=== PATIENT | female | born 1950 | race Caucasian/White ===

== ENCOUNTER 2020-05-18 10:15 | Outpatient (REF) | payer MEDICARE, OTHER, SELFPAY ==
[2020-05-18 14:07] LABS: Anion Gap 11 (12-20); Blood Urea Nitrogen 18 mg/dL (9-16); Calcium 8.8 mg/dL (8.4-10.2); Carbon Dioxide 27 mmol/L (22-29); Chloride 103 mmol/L (96-108); Estimated Glomerular Filt Rate > 60; Glucose Random 82 mg/dL (60-115); Potassium 4.1 mmol/l (3.3-5.1); Sodium 137 mmol/L (135-145)
[2020-05-18 14:30] LABS: Vitamin D 25-OH Total 33.6 ng/mL (>30)
== END 2020-05-18 10:16 | disposition home or self-care (01) ==
LOC: HO.10HDL 10:15
PROVIDERS: PCP Internal Medicine; Visit Provider Internal Medicine
DX: I10 Essential (primary) hypertension (principal); E55.9 Vitamin D deficiency, unspecified
CPT/HCPCS: 80048; 82306

== ENCOUNTER 2020-10-30 09:56 | Outpatient (REF) | payer MEDICARE, OTHER, SELFPAY ==
--- NOTE | ~2020-10-30 | XR_ITS ---
EXAMINATION: XR KNEE, LEFT CLINICAL INFORMATION: Left knee pain COMPARISON: 10/09/2009 TECHNIQUE: Four views of the left knee. FINDINGS: No acute fracture or dislocation. Small tricompartmental marginal osteophytes. There is moderate narrowing of the lateral patellofemoral compartment with a coming subchondral sclerosis and cystic change. Joint spaces are otherwise relatively preserved. Trace joint effusion. Soft tissues unremarkable. XR/XR knee LT 4V IMPRESSION: No acute findings. There is moderate joint space narrowing involving the lateral patellofemoral compartment. Small tricompartmental marginal osteophytes. Trace joint effusion.
[2020-10-30 10:46] LABS: MANUAL DIFF FLAG NO
[2020-10-30 10:51] LABS: Basophils Absolute Auto 0.1 X10*3/uL (0.0-0.2); Basophils Percent Auto 0.6 % (0-2); Eosinophils Absolute Auto 0.2 X10*3/uL (0.0-0.4); Eosinophils Percent Auto 2.2 % (0-4); Hematocrit 41.1 % (37-47); Hemoglobin 13.4 g/dl (12.0-16.0); Imm Gran Abs Auto 0.06 X10*3/uL (0.00-0.03); Imm Gran Pct Auto 0.6 % (0.0-0.4); Lymphocytes Absolute Auto 4.6 X10*3/uL (1.2-4.9); Lymphocytes Percent Auto 49.2 % (20-40); Mean Corpuscular HGB Conc 32.6 g/dl (31.0-35.0); Mean Corpuscular Hemoglobin 29.4 pg (27.0-33.0); Mean Corpuscular Volume 90.1 fL (80-98); Monocytes Absolute Auto 0.7 X10*3/uL (0.1-1.2); Monocytes Percent Auto 7.3 % (2-11); Neutrophils Absolute Auto 3.7 X10*3/uL (2.0-8.3); Neutrophils Percent Auto 40.1 % (45-73); Platelet Count 251 X10*3/uL (160-400); Red Blood Count 4.56 X10*6/uL (4.20-5.50); White Blood Count 9.3 X10*3/uL (4.8-10.8)
[2020-10-30 11:40] LABS: Alanine Aminotransferase 17 U/L (0-31); Albumin Level 4.2 g/dL (3.5-5.0); Alkaline Phosphatase 53 U/L (39-117); Anion Gap 13 (12-20); Aspartate Amino Transferase 20 U/L (5-31); Bilirubin Total 0.9 mg/dL (0.0-1.0); Blood Urea Nitrogen 21 mg/dL (9-16); Calcium 9.2 mg/dL (8.4-10.2); Carbon Dioxide 25 mmol/L (22-29); Chloride 106 mmol/L (96-108); Cholesterol 182 mg/dL; Estimated Glomerular Filt Rate > 60; Glucose Fasting 88 mg/dL (60-99); HDL Cholesterol 47 mg/dL; LDL Cholesterol Calculated 116 mg/dl; Potassium 4.3 mmol/L (3.3-5.1); Sodium 140 mmol/L (135-145); Total Protein 6.9 g/dL (6.5-8.0); Triglycerides 98 mg/dL
== END 2020-10-30 09:57 | disposition home or self-care (01) ==
LOC: HO.LAB 09:56
PROVIDERS: PCP Internal Medicine; Visit Provider Internal Medicine
DX: M25.562 Pain in left knee (principal)
CPT/HCPCS: 36415; 73564; 80053; 80061; 82306; 85025

== ENCOUNTER 2021-04-02 10:50 | Outpatient (REF) | payer MEDICARE, OTHER, SELFPAY ==
--- NOTE | ~2021-04-02 | US_ITS ---
EXAMINATION: US VENOUS ULTRASOUND WITH DOPPLER LOWER EXTREMITY, RIGHT CLINICAL INFORMATION: Right leg pain COMPARISON: None TECHNIQUE: Ultrasound of the deep veins is performed from the hip to the calf with compression sonography and color and pulse Doppler assessment. Spectral analysis with color-flow imaging is performed. FINDINGS: There is normal venous compression and respiratory variation and augmented flow. The visualized common femoral vein, superficial femoral vein, profunda femoral vein, popliteal vein, and the trifurcation region shows no evidence of deep venous thrombosis. There is a Crump's cyst noted measuring 5.9 x 1.2 x 3.9 cm. In the area of pain at the right ankle there is a small area of superficial fluid measuring 1.2 x 0.7 x 1 cm. If the patient's symptoms persist, followup ultrasound in 5 days 7 days might be of value to exclude proximal propagation from a non-visualized calf vein. US/US venous duplex LE RT IMPRESSION: No DVT demonstrated in the right lower extremity. Crump's cyst. Area of superficial fluid at the right ankle. This is of uncertain clinical significance.
--- NOTE | ~2021-04-02 | XR_ITS ---
EXAMINATION: XR KNEE, RIGHT CLINICAL INFORMATION: Right knee pain. COMPARISON: Left knee done on 10/30/2020. TECHNIQUE: Four views of the right knee. FINDINGS: Moderate diffuse osteopenia. Asymmetric decreased joint space of the lateral compartment with mild osteophyte formations and underlying sclerosis, consistent with ttbv-ii-upzigbam osteoarthrosis is noted at the lateral compartment. No evidence of any joint effusion. No focal osseous lesions. Patellofemoral joint and the medial compartment shows minimal osteoarthrosis. XR/XR knee RT 3V IMPRESSION: 1. Moderate diffuse osteopenia. 2. [id number]-vitgxdyf osteoarthrosis of the lateral compartment of the right knee.
== END 2021-04-02 10:51 | disposition home or self-care (01) ==
LOC: HO.US 10:50
PROVIDERS: PCP Internal Medicine; Visit Provider Internal Medicine
DX: R60.0 Localized edema (principal); M79.604 Pain in right leg
CPT/HCPCS: 73562; 93971

== ENCOUNTER 2021-05-14 10:32 | Outpatient (REF) | payer MEDICARE, OTHER, SELFPAY ==
--- NOTE | ~2021-05-14 | XR_ITS ---
EXAMINATION: XR KNEE, RIGHT CLINICAL INFORMATION: Right knee pain. COMPARISON: X-rays March 2021. TECHNIQUE: Four views of the right knee including upright views. FINDINGS: Medial Compartment: Small marginal osteophytes without joint space narrowing indicative of mild osteoarthritis. Lateral Compartment: Marginal osteophytes with joint space narrowing indicative of yhsn-vo-hlgpirpn osteoarthritis unchanged. Patellofemoral Compartment: Nonuniform joint space narrowing with subchondral cysts along the lateral aspect of the compartment. Marginal osteophytes. Overall mild arthrosis. Trace joint effusion. XR/XR knee RT 4V IMPRESSION: Osteoarthritis of the right knee, unchanged, with degenerative changes most prominent in the lateral compartment being mild to moderate.
== END 2021-05-14 10:33 | disposition home or self-care (01) ==
LOC: HO.XRAY 10:32
PROVIDERS: PCP Internal Medicine; Visit Provider Internal Medicine
DX: M25.561 Pain in right knee (principal)
CPT/HCPCS: 73564

== ENCOUNTER → 2021-05-20 13:52 | Outpatient (BNVA) | payer MEDICARE, OTHER, SELFPAY | PROVIDERS: PCP Internal Medicine; Visit Provider Orthopaedic Surgery | DX: M17.11 Unilateral primary osteoarthritis, right knee (principal) | CPT/HCPCS: 20610; 99202; J1100 ==

== ENCOUNTER 2021-08-06 10:54 | Outpatient (REF) | payer MEDICARE, OTHER, SELFPAY ==
[2021-08-06 13:43] LABS: MANUAL DIFF FLAG NO
[2021-08-06 13:50] LABS: Basophils Absolute Auto 0.1 X10*3/uL (0.0-0.2); Basophils Percent Auto 0.5 % (0-2); Eosinophils Absolute Auto 0.2 X10*3/uL (0.0-0.4); Eosinophils Percent Auto 2.2 % (0-4); Hematocrit 40.7 % (37.0-47.0); Hemoglobin 13.4 g/dl (12.0-16.0); Imm Gran Abs Auto 0.04 X10*3/uL (0.00-0.03); Imm Gran Pct Auto 0.4 % (0.0-0.4); Lymphocytes Absolute Auto 4.4 X10*3/uL (1.2-4.9); Mean Corpuscular HGB Conc 32.9 g/dl (31.0-35.0); Mean Corpuscular Hemoglobin 29.4 pg (27.0-33.0); Mean Corpuscular Volume 89.3 fL (80.0-98.0); Monocytes Absolute Auto 0.7 X10*3/uL (0.1-1.2); Monocytes Percent Auto 7.2 % (2-11); Neutrophils Absolute Auto 3.8 x10*3/uL (2.0-8.3); Neutrophils Percent Auto 41.7 % (45-73); Platelet Count 248 X10*3/uL (160-400); Red Blood Count 4.56 X10*6/uL (4.20-5.50); Red Cell Distribution Width 12.7 % (11.0-16.0); White Blood Count 9.2 X10*3/uL (4.8-10.8)
[2021-08-06 14:00] LABS: Alanine Aminotransferase 20 U/L (0-31); Albumin Level 4.1 g/dL (3.5-5.0); Alkaline Phosphatase 52 U/L (39-117); Anion Gap 12 (12-20); Aspartate Amino Transferase 20 U/L (5-31); Bilirubin Total 0.9 mg/dL (0.0-1.0); Blood Urea Nitrogen 16 mg/dL (9-16); Calcium 9.3 mg/dL (8.4-10.2); Carbon Dioxide 29 mmol/L (22-29); Chloride 103 mmol/L (96-108); Estimated Glomerular Filt Rate > 60; Glucose Fasting 84 mg/dL (60-99); Lipase 8 U/L (8-78); Potassium 4.1 mmol/L (3.3-5.1); Sodium 140 mmol/L (135-145)
== END 2021-08-06 10:55 | disposition home or self-care (01) ==
LOC: HO.10HDL 10:54
PROVIDERS: Visit Provider Internal Medicine
DX: I10 Essential (primary) hypertension (principal); K21.9 Gastro-esophageal reflux disease without esophagitis
CPT/HCPCS: 36415; 80053; 83690; 85025; 86140

== ENCOUNTER → 2021-08-19 09:30 | Outpatient (BNVA) | payer MEDICARE, OTHER, SELFPAY | PROVIDERS: PCP Internal Medicine; Visit Provider Orthopaedic Surgery | DX: M17.11 Unilateral primary osteoarthritis, right knee (principal) | CPT/HCPCS: 20610; 99212; J1100 ==

== ENCOUNTER 2021-09-30 10:00 | Outpatient (RCR) | payer MEDICARE, OTHER, SELFPAY | END 2021-12-16 09:25 | disposition home or self-care (01) | LOC: HO.PTWFD 10:00 | PROVIDERS: Visit Provider Orthopaedic Surgery | DX: M17.11 Unilateral primary osteoarthritis, right knee (principal) | CPT/HCPCS: 97110; 97140; 97161; 97535 ==

== ENCOUNTER 2022-03-18 10:16 | Outpatient (REF) | payer MEDICARE, OTHER, SELFPAY ==
[2022-03-18 13:55] LABS: Alanine Aminotransferase 30 U/L (0-31); Albumin Level 4.3 g/dL (3.5-5.0); Alkaline Phosphatase 58 U/L (39-117); Anion Gap 14 (12-20); Aspartate Amino Transferase 26 U/L (5-31); Bilirubin Total 0.8 mg/dL (0.0-1.0); Blood Urea Nitrogen 20 mg/dL (9-16); Carbon Dioxide 24 mmol/L (22-29); Chloride 105 mmol/L (96-108); Cholesterol 155 mg/dL; Estimated Glomerular Filt Rate > 60; Glucose Fasting 86 mg/dL (60-99); HDL Cholesterol 40 mg/dL; LDL Cholesterol Calculated 99 mg/dl; Potassium 4.1 mmol/L (3.3-5.1); Sodium 139 mmol/L (135-145); Total Protein 7.1 g/dL (6.5-8.0); Triglycerides 84 mg/dL
== END 2022-03-18 10:17 | disposition home or self-care (01) ==
LOC: HO.10HDL 10:16
PROVIDERS: Visit Provider Internal Medicine
DX: I10 Essential (primary) hypertension (principal); E78.00 Pure hypercholesterolemia, unspecified; K21.9 Gastro-esophageal reflux disease without esophagitis
CPT/HCPCS: 36415; 80053; 80061

== ENCOUNTER 2022-06-28 08:59 | Day surgery (SDC) | payer MEDICARE, OTHER, SELFPAY ==
[2022-06-28 09:04] VITALS: BMI 32.9
[2022-06-28] MEDS: Lactated Ringers 1,000 ML 50 ML IVCONT (09:33)
[2022-06-28 09:47] VITALS: BP 157/84; PULSE 68; RESP 18; TEMP 36.7; O2SAT 96
--- NOTE | 2022-06-28 09:50 | P.CONAN_ITS ---
[facility] Active Problems Active Problems: All Active Problems (Updated 06/27/22 @ 09:28 by La Sewell) Arthritis of right knee (Acute) Past Medical History Medical History Bakers cyst Gastritis H. pylori infection HTN (hypertension) Peptic ulcer disease Polyp of hepatic flexure of colon Functional capacity: independent ambulation Patient : No Surgical History Surgical History H/O colonoscopy H/O endoscopy History of Hx of cholecystectomy Social History Social History Patient Tobacco Use Status: Never used Tobacco Are you DNR?: No Advance Directives: No Advance Directives Information Provided: Yes Nutrition Risks: No Nutritional Risk Meds Allergies Allergy/AdvReac Type Severity Reaction Status Date / Time No Known Allergies Allergy Mild NONE Unverified 02/13/20 16:37 Active Medications: Current Medications Lactated Ringer's (Lr) 1,000 mls @ 50 mls/hr IVCONT .Q20H MARIZOL Last Admin: 06/28/22 09:33 Dose: 50 mls/hr Home Medications Medication Instructions Recorded Confirmed Last Taken Type Protonix 06/27/22 06/27/22 Unknown History amlodipine 10 mg tablet 1 tab PO DAILY 06/27/22 06/27/22 Unknown History nadolol 40 mg tablet 1 tab PO DAILY 06/27/22 06/27/22 Unknown History pantoprazole 40 mg tablet,delayed 1 tab PO DAILY 06/27/22 06/27/22 Unknown History release Exam Exam Date and Time: June 28, 2022 0950 Height,Weight and Vital Signs: Height 5 ft 2 in Weight 81.647 kg Last Vital Signs Temp 98.1 F 06/28/22 09:47 Pulse 68 06/28/22 09:47 Resp 18 06/28/22 09:47 BP 157/84 H 06/28/22 09:47 Pulse Ox 96 06/28/22 09:47 O2 Del Method 06/28/22 09:47 Airway Mallampati Class: II TM Dist: >3cm Neck ROM: Full Heart: RRR Lungs: CTA Assessment and Plan Final Anesthetic Review ASA Class: II Final Preanesthetic Review: Meds/Allgs Chart Reviewed, Consent Obtained/Reviewed and Anes Risks/Benef Reviewed Patient Risk: Low Procedure Risk: Low Anesthetic Plan Anesthetic Plan: MAC: Disposition: Standard PACU
--- NOTE | 2022-06-28 10:10 | MHC.SHP ---
Pre-Procedural Eval Section A Date of Service: 06/28/22 The patient is an INPATIENT: No Changes since office visit: No Cold of Flu in the past 2 weeks, No New Medical Problems, No Changes in Medication and No Patient answered all questions The History & Physical has been completed within 30 days and I have reviewed it.: Yes Section B Chief Complaint: reflux disease,screening Allergies: Allergies Allergy/AdvReac Type Severity Reaction Status Date / Time No Known Allergies Allergy Mild NONE Unverified 02/13/20 16:37 Plan I have reviewed the history and physical and performed a pertinent physical examination on my patient. No changes have occurred unless specified. Time Spent With Patient Time: Total time managing care of this patient today ____ minutes.
--- NOTE | 2022-06-28 10:55 | PM.OP ---
Brief Operative Note Date of Service: 06/28/22 Pre-op diagnosis: gerd screening Post-op diagnosis: same Procedure: egd colonoscopy Surgeon: Tin Corbin Anesthesia: MAC Was an Self Propelled Dredge Operator used for this Procedure?: No Estimated blood loss (mL): 2 Pathology: other Condition: stable Disposition: PACU
[2022-06-28 10:58] VITALS: BP 98/52; PULSE 70; RESP 16; TEMP 36.7; O2SAT 96
[2022-06-28 11:13] VITALS: BP 104/59; PULSE 69; RESP 16; TEMP 36.6; O2SAT 97
--- NOTE | 2022-06-28 11:16 | HO.POSTANES ---
Post Anesthesia Evaluation Post Anesthesia Evaluation Vital Signs: Vital Signs Temp Pulse Resp BP Pulse Ox O2 Del Method 06/28/22 10:58 98.1 F 70 16 98/52 L 96 Room Air 06/28/22 09:47 98.1 F 68 18 157/84 H 96 Room Air Anesthesia: Monitored Mental Status: Awake Pain Control: Satisfactory Nausea/Vomiting: None Hydration: Adequate Anesthesia-Related Issues: No Anes. Related Issues
--- NOTE | 2022-06-28 21:51 | OP_ITS ---
SURGEON: Tin Corbin MD INDICATIONS: Gastroesophageal reflux disease and colon cancer screening. PREOPERATIVE DIAGNOSIS: POSTOPERATIVE DIAGNOSIS: PROCEDURE PERFORMED: Upper endoscopy with biopsy, colonoscopy to the terminal ileum. ESTIMATED BLOOD LOSS: COMPLICATIONS: ANESTHESIA: ASSISTANTS: SPECIMENS: MEDICATIONS: Monitored anesthesia care. DESCRIPTION OF PROCEDURE: Date: 06/28/22. A history and physical was performed. The risks and benefits of the procedure were explained to the patient. Informed consent was obtained. The patient was placed in the left lateral decubitus position. The Olympus video gastroscope was introduced into the esophagus, stomach, and duodenum. Examination was performed and the scope was removed. She was repositioned for colonoscopy. A digital rectal exam was performed and was found to be normal. The Olympus pediatric video colonoscope introduced into the rectum and advanced to the cecum without difficulty. The cecum was identified by translumination, palpation, and identification of the ileocecal valve. Examination was performed. The scope was removed. She tolerated the procedure well and was returned to the recovery area in stable condition. FINDINGS: UPPER ENDOSCOPY: Esophagus: The esophagus was normal. Biopsies were obtained from the EG junction. There was no esophagitis. Stomach: The stomach was normal. There was no evidence of masses or ulcers. There was a 10 mm nodular area on the lesser curvature and at the level of the angularis, biopsies were obtained from the nodule and from the antrum. Duodenum: The bulb and second portion were normal. COLONOSCOPY: The terminal ileum was examined and appeared normal. The visualized colonic mucosa was normal. There was a large amount of liquid and formed stool present which limited sensitivity examination for detection of small polyps. This was washed and suctioned as best possible. No polyps were identified. There was moderate sigmoid diverticulosis with scattered diverticula and the remainder of the colon. Retroflexed examination showed moderate sized internal hemorrhoids. IMPRESSION: 1. Gastroesophageal reflux disease. 2. Normal colonoscopy. RECOMMENDATIONS: 1. Follow up the biopsy results. 2. Repeat colonoscopy as recommended in 10 years for average risk individuals. MD ADRIANA Roque/MAREK / [id number] MTDD
== END 2022-06-28 12:12 | disposition home or self-care (01) ==
PROVIDERS: PCP Internal Medicine; Visit Provider Internal Medicine Gastroenterology
PROC: (CPT 43239; principal; 2022-06-28 10:10)
DX: Z12.11 Encounter for screening for malignant neoplasm of colon (principal); Z86.010 Personal history of colon polyps; K57.30 Diverticulosis of large intestine without perforation or abscess without bleeding; K64.8 Other hemorrhoids; K58.1 Irritable bowel syndrome with constipation; K21.9 Gastro-esophageal reflux disease without esophagitis; K29.50 Unspecified chronic gastritis without bleeding; K27.9 Peptic ulcer, site unspecified, unspecified as acute or chronic, without hemorrhage or perforation; I10 Essential (primary) hypertension; Z86.19 Personal history of other infectious and parasitic diseases; Z79.899 Other long term (current) drug therapy; Z90.49 Acquired absence of other specified parts of digestive tract
CPT/HCPCS: 43239; G0105; 88305; 88342

== ENCOUNTER 2022-07-04 09:50 | Outpatient (REF) | payer MEDICARE, OTHER, SELFPAY ==
[2022-07-04 10:04] LABS: MANUAL DIFF FLAG NO
[2022-07-04 10:18] LABS: Basophils Absolute Auto 0.1 X10*3/uL (0.0-0.2); Basophils Percent Auto 0.8 % (0-2); Eosinophils Absolute Auto 0.2 X10*3/uL (0.0-0.4); Eosinophils Percent Auto 2.5 % (0-4); Hematocrit 42.1 % (37.0-47.0); Imm Gran Abs Auto 0.02 X10*3/uL (0.00-0.03); Imm Gran Pct Auto 0.2 % (0.0-0.4); Lymphocytes Percent Auto 45.8 % (20-40); Mean Corpuscular HGB Conc 33.3 g/dl (31.0-35.0); Mean Corpuscular Hemoglobin 29.2 pg (27.0-33.0); Mean Corpuscular Volume 87.7 fL (80.0-98.0); Mean Platelet Volume 10.3 fL (9.4-12.3); Monocytes Absolute Auto 0.6 X10*3/uL (0.1-1.2); Monocytes Percent Auto 6.7 % (2-11); Neutrophils Absolute Auto 3.9 x10*3/uL (2.0-8.3); Platelet Count 257 X10*3/uL (160-400); Red Cell Distribution Width 12.9 % (11.0-16.0); White Blood Count 8.8 X10*3/uL (4.8-10.8)
[2022-07-04 11:17] LABS: Alanine Aminotransferase 20 U/L (0-31); Albumin Level 4.2 g/dL (3.5-5.0); Alkaline Phosphatase 56 U/L (39-117); Anion Gap 9 (12-20); Aspartate Amino Transferase 19 U/L (5-31); Bilirubin Total 0.8 mg/dL (0.0-1.0); Blood Urea Nitrogen 17 mg/dL (9-16); Calcium 9.2 mg/dL (8.4-10.2); Carbon Dioxide 26 mmol/L (22-29); Chloride 107 mmol/L (96-108); Cholesterol 180 mg/dL; Estimated Glomerular Filt Rate > 60; Glucose Fasting 88 mg/dL (60-99); HDL Cholesterol 42 mg/dL; LDL Cholesterol Calculated 120 mg/dl; Potassium 4.4 mmol/L (3.3-5.1); Sodium 138 mmol/L (135-145); Total Protein 6.9 g/dL (6.5-8.0); Triglycerides 92 mg/dL
== END 2022-07-04 09:51 | disposition home or self-care (01) ==
LOC: HO.LAB 09:50
PROVIDERS: PCP Internal Medicine; Visit Provider Internal Medicine
DX: Z00.00 Encounter for general adult medical examination without abnormal findings (principal)
CPT/HCPCS: 36415; 80053; 80061; 85025

== ENCOUNTER 2022-12-12 10:09 | Outpatient (REF) | payer MEDICARE, OTHER, SELFPAY ==
--- NOTE | ~2022-12-12 | XR_ITS ---
EXAMINATION: XR KNEE, LEFT CLINICAL INFORMATION: Pain COMPARISON: None available. TECHNIQUE: Four views of the left knee. FINDINGS: No fracture or dislocation. Moderate cartilage space narrowing in the lateral compartment with bony spurring. Mild degenerative changes in the medial compartment and patellofemoral compartments. No large effusion. Soft tissues unremarkable. XR/XR knee LT 4V IMPRESSION: Moderate degenerative change in the lateral compartment.
--- NOTE | ~2022-12-12 | XR_ITS ---
EXAMINATION: XR ANKLE, LEFT CLINICAL INFORMATION: Pain COMPARISON: None available. TECHNIQUE: AP, lateral, and mortise views of the left ankle. FINDINGS: No fracture. Alignment is anatomic. No erosions. Joint spaces are maintained. Small plantar calcaneal spur. Soft tissues are normal. XR/XR ankle LT min 3V IMPRESSION: 1. No fracture or dislocation. 2. Small plantar calcaneal spur.
[2022-12-12 10:28] LABS: MANUAL DIFF FLAG NO
[2022-12-12 11:30] LABS: Basophils Absolute Auto 0.1 X10*3/uL (0.0-0.2); Basophils Percent Auto 0.5 % (0-2); Eosinophils Absolute Auto 0.3 X10*3/uL (0.0-0.4); Eosinophils Percent Auto 2.5 % (0-4); Hematocrit 41.4 % (37.0-47.0); Hemoglobin 13.7 g/dl (12.0-16.0); Imm Gran Abs Auto 0.04 X10*3/uL (0.00-0.03); Imm Gran Pct Auto 0.4 % (0.0-0.4); Lymphocytes Absolute Auto 4.4 X10*3/uL (1.2-4.9); Lymphocytes Percent Auto 44.6 % (20-40); Mean Corpuscular HGB Conc 33.1 g/dl (31.0-35.0); Mean Corpuscular Hemoglobin 29.4 pg (27.0-33.0); Mean Corpuscular Volume 88.8 fL (80.0-98.0); Mean Platelet Volume 10.4 fL (9.4-12.3); Monocytes Absolute Auto 0.7 X10*3/uL (0.1-1.2); Monocytes Percent Auto 6.9 % (2-11); Neutrophils Absolute Auto 4.5 x10*3/uL (2.0-8.3); Neutrophils Percent Auto 45.1 % (45-73); Platelet Count 239 X10*3/uL (160-400); Red Blood Count 4.66 X10*6/uL (4.20-5.50); Red Cell Distribution Width 13.2 % (11.0-16.0)
[2022-12-12 12:37] LABS: Anion Gap 11 (12-20); Blood Urea Nitrogen 19 mg/dL (9-16); Calcium 9.5 mg/dL (8.4-10.2); Carbon Dioxide 25 mmol/L (22-29); Chloride 105 mmol/L (96-108); Estimated Glomerular Filt Rate > 60; Glucose Random 86 mg/dL (60-115); Potassium 3.9 mmol/L (3.3-5.1); Sodium 137 mmol/L (135-145); Uric Acid 4.2 mg/dL (2.4-5.7)
== END 2022-12-12 10:10 | disposition home or self-care (01) ==
LOC: HO.XRAY 10:09
PROVIDERS: PCP Internal Medicine; Visit Provider Internal Medicine
DX: I10 Essential (primary) hypertension (principal); K21.9 Gastro-esophageal reflux disease without esophagitis; M25.562 Pain in left knee; M25.572 Pain in left ankle and joints of left foot
CPT/HCPCS: 36415; 73564; 73610; 80048; 84550; 85025; 86140

== ENCOUNTER 2023-02-17 08:17 | Day surgery (SDC) | payer MEDICARE, OTHER, SELFPAY ==
--- NOTE | 2023-02-16 10:37 | P.CONAN_ITS ---
Documented by User: Mara Monterroso NP 02/16/23 10:38 HPI - Anesthesia Eval Consult details Narrative: 73yo F for Upper Endoscopy [facility] Active Problems Active Problems: All Active Problems (Updated 06/27/22 @ 09:28 by La Sewell) Arthritis of right knee (Acute) Past Medical History Medical History Bakers cyst Gastritis H. pylori infection HTN (hypertension) Peptic ulcer disease Polyp of hepatic flexure of colon Surgical History Surgical History H/O colonoscopy H/O endoscopy History of Hx of cholecystectomy Social History Social History Patient Tobacco Use Status: Never used Tobacco Are you DNR?: No Advance Directives: No Advance Directives Information Provided: Yes Recently lost weight without trying: No Nutrition Risks: No Nutritional Risk Meds Allergies Allergy/AdvReac Type Severity Reaction Status Date / Time No Known Allergies Allergy Mild NONE Unverified 02/13/20 16:37 Home Medications Medication Instructions Recorded Confirmed Last Taken Type amlodipine 10 mg tablet 1 tab PO DAILY 06/27/22 06/27/22 02/17/23 History nadolol 40 mg tablet 1 tab PO DAILY 06/27/22 06/27/22 02/17/23 History pantoprazole 40 mg tablet,delayed 1 tab PO DAILY 06/27/22 06/27/22 02/16/23 History release Exam Exam Date and Time: February 16, 2023 1037 Assessment and Plan Assessment Anesthesia Assessment: Chart Reviewed Documented by User: Kayce London MD 02/17/23 09:05 [facility] Past Medical History Medical History Bakers cyst Gastritis H. pylori infection HTN (hypertension) Peptic ulcer disease Polyp of hepatic flexure of colon Family History Family history of problems with anesthesia: No Surgical History Surgical History H/O colonoscopy H/O endoscopy History of Hx of cholecystectomy History of Problems with Anesthesia: No Social History Social History Patient Tobacco Use Status: Never used Tobacco Are you DNR?: No Advance Directives: No Advance Directives Information Provided: Yes Recently lost weight without trying: No Nutrition Risks: No Nutritional Risk Meds Allergies Allergy/AdvReac Type Severity Reaction Status Date / Time No Known Allergies Allergy Mild NONE Unverified 02/13/20 16:37 Home Medications Medication Instructions Recorded Confirmed Last Taken Type amlodipine 10 mg tablet 1 tab PO DAILY 06/27/22 06/27/22 02/17/23 History nadolol 40 mg tablet 1 tab PO DAILY 06/27/22 06/27/22 02/17/23 History pantoprazole 40 mg tablet,delayed 1 tab PO DAILY 06/27/22 06/27/22 02/16/23 History release Exam Airway Mallampati Class: III TM Dist: >3cm Neck ROM: Full Assessment and Plan Assessment Anesthesia Assessment: Anesthesia Plan Discussed Final Anesthetic Review Family History of Problems with Anesthesia: No History of Problems with Anesthesia: No NPO: Yes ASA Class: II Final Preanesthetic Review: No Changes in Pt Med Stat, Meds/Allgs Chart Reviewed, Consent Obtained/Reviewed and Anes Risks/Benef Reviewed Patient Risk: Intermediate Procedure Risk: Low Anesthetic Plan Anesthetic Plan: MAC: Disposition: Standard PACU
[2023-02-17 08:06] VITALS: BMI 34.7
[2023-02-17 08:27] VITALS: BP 156/83; PULSE 58; RESP 20; TEMP 36.6; O2SAT 98
[2023-02-17] MEDS: Lactated Ringers 1,000 ML 100 ML IVCONT (08:52)
--- NOTE | 2023-02-17 09:19 | P.HPSUR_ITS ---
Pre-Procedural Eval Section A Date of Service: 02/17/23 Section B Chief Complaint: Gastric intestinal metaplasia, unspecified Details of Present Illness: see H&P no changes Relevant Family History (Specify if Yes): No Relevant Social History: None Present Medications: see Short Stay Collaborative assessment Medical History: No relevant PMH History of Previous Operations: No relevant previous surgery Allergies: Allergies Allergy/AdvReac Type Severity Reaction Status Date / Time No Known Allergies Allergy Mild NONE Unverified 02/13/20 16:37 Review of Systems Sugical H&P ROS: Negative: Constitution, Cardiovascular, Respiratory, Neur ological, Psychiatric, Hem-Onc, Allergic/Immunologic, Gastrointestinal, Genitourinary, Musculoskeletal, Integumentary, Endocrine and Eyes/Ears/Nose/Throat Exam Surgical H&P Exam: Normal: HEENT, Normal: Heart, Normal: Lungs, Normal: Extremities, Normal: Abdomen, Normal: Skin and Normal: Neurological Plan Diagnosis/Plan: Unchanged I have reviewed the history and physical and performed a pertinent physical examination on my patient. No changes have occurred unless specified. Time Spent With Patient Time: Total time managing care of this patient today ____ minutes.
[2023-02-17 09:45] VITALS: BP 107/50; PULSE 66; RESP 16; TEMP 36.3; O2SAT 97
--- NOTE | 2023-02-17 09:57 | PM.OP ---
Brief Operative Note Date of Service: 02/17/23 Pre-op diagnosis: gastric intestinal metaplasia Post-op diagnosis: same Procedure: EGD Surgeon: Tin Corbin Anesthesia: MAC Was an Student Development Specialist used for this Procedure?: No Estimated blood loss (mL): 5 Pathology: other Condition: stable Disposition: PACU
[2023-02-17 10:00] VITALS: BP 102/78; PULSE 71; RESP 16; O2SAT 96
[2023-02-17 10:15] VITALS: BP 151/89; PULSE 64; RESP 16; TEMP 36.8; O2SAT 95
--- NOTE | 2023-02-17 11:08 | OP_ITS ---
DATE OF SERVICE: 02/17/2023 SURGEON: Tin Corbin MD INDICATIONS: Gastric intestinal metaplasia. PREOPERATIVE DIAGNOSIS: POSTOPERATIVE DIAGNOSIS: PROCEDURE PERFORMED: ESTIMATED BLOOD LOSS: COMPLICATIONS: ANESTHESIA: Monitored anesthesia care. ASSISTANTS: SPECIMENS: PROCEDURE: Upper endoscopy. DESCRIPTION OF PROCEDURE: A history and physical were performed. The risks and benefits of the procedure were explained to the patient. Informed consent was obtained. The patient was placed in the left lateral decubitus position. The Olympus video gastroscope was introduced into the esophagus, stomach, and duodenum. Examination was performed. The scope was removed. She tolerated the procedure well and was taken to recovery in stable condition. FINDINGS: Esophagus: The esophagus showed an irregular EG junction. There was no esophagitis. Stomach: Showed no evidence of masses, ulcers, or polyps. Biopsies were obtained from throughout the stomach because of the patient's prior history of gastrointestinal metaplasia. Duodenum, the bulb and 2nd portion were normal. IMPRESSION: Gastric intestinal metaplasia. RECOMMENDATION: Follow up the biopsy results. MD ADRIANA Roque/MODL / [id number]
== END 2023-02-17 10:48 | disposition home or self-care (01) ==
PROVIDERS: PCP Internal Medicine; Visit Provider Internal Medicine Gastroenterology
PROC: 0DJ08ZZ Inspection of Upper Intestinal Tract, Via Natural or Artificial Opening Endoscopic (ICD-10-PCS; CPT 43235; principal; 2023-02-17 09:40)
DX: K31.A0 Gastric intestinal metaplasia, unspecified (principal); K21.9 Gastro-esophageal reflux disease without esophagitis; K58.1 Irritable bowel syndrome with constipation; K27.9 Peptic ulcer, site unspecified, unspecified as acute or chronic, without hemorrhage or perforation; I10 Essential (primary) hypertension; Z79.899 Other long term (current) drug therapy; Z90.49 Acquired absence of other specified parts of digestive tract
CPT/HCPCS: 43239; 88305; 88342

== ENCOUNTER 2023-03-20 10:22 | Outpatient (REF) | payer MEDICARE, OTHER, SELFPAY ==
[2023-03-20 11:41] LABS: Anion Gap 13 (12-20); Blood Urea Nitrogen 15 mg/dL (9-16); Carbon Dioxide 25 mmol/L (22-29); Chloride 105 mmol/L (96-108); Estimated Glomerular Filt Rate > 60; Glucose Random 85 mg/dL (60-115); Potassium 3.8 mmol/L (3.3-5.1); Sodium 139 mmol/L (135-145)
[2023-03-20 12:02] LABS: Thyroid Stimulating Hormone 2.28 uIU/mL (0.32-4.0)
[2023-03-20 12:05] LABS: Vitamin B12 497 pg/mL (200-900)
== END 2023-03-20 10:23 | disposition home or self-care (01) ==
LOC: HO.10HDL 10:22
PROVIDERS: Visit Provider Internal Medicine
DX: I10 Essential (primary) hypertension (principal); K21.9 Gastro-esophageal reflux disease without esophagitis; R53.83 Other fatigue
CPT/HCPCS: 36415; 80048; 82607; 84443

== ENCOUNTER 2023-06-27 09:00 | Outpatient (RCR) | payer MEDICARE, OTHER, SELFPAY | END 2023-07-24 11:10 | disposition home or self-care (01) | LOC: HO.PTWFD 09:00 | PROVIDERS: PCP Internal Medicine; Visit Provider Physician Assistant | DX: M72.2 Plantar fascial fibromatosis (principal); S89.90XD Unspecified injury of unspecified lower leg, subsequent encounter | CPT/HCPCS: 97110; 97140; 97161 ==

== ENCOUNTER 2023-08-08 08:49 | Outpatient (AMB) | payer MEDICARE, OTHER, SELFPAY ==
--- NOTE | 2023-08-08 08:51 | MHC.OFFVIS ---
Intake Vital Signs 08/08/23 09:00 Height 5 ft 2 in Weight 188 lb BMI 34.4 BP 188/79 H Blood Pressure Location Lt brachial Position Sitting Pulse 67 Intake Visit Reasons: Thrombosed Hemorrhoid Intake Note: Patient is seen in office for evaluation and treatment of a thrombosed hemorrhoid. Pt c/o: feel lump on the left side of the anus and a rash around buttock, onset 2 wks, admits to constipation, straining, denies blood in stool, takes 6 prums every day and has taken Miralax and Senna with relief, has been having normal bm since taking the meds Manager Nuclear Required: No Work Over Rig Operator: Work Over Rig Operator Present Accompanied by: Self / Same As Patient Allergies No Known Allergies Allergy (Mild, Unverified 08/08/23 08:59) NONE HPI HPI Comments History of Present Illness Details 73-year-old female patient presenting for evaluation of thrombosed hemorrhoid. She reports the symptoms began approximately 2 weeks ago. She reports traveling to [place] to visit her son. She has chronic constipation and requires senna and MiraLax to have a bowel movement. She normally uses a nbhj-glp-ljukzql cream which does not seem to be helping. She noted swelling in the outside skin but also notes skin burning and irritation. She thought she might have a thrombosed hemorrhoid but has history of fissures as well. She does report needing to strain to have a bowel movement but denies any bleeding per rectum. FOR[facility]LY [facility], [facility]1983 Medical History Polyp of hepatic flexure of colon Bakers cyst HTN (hypertension) Peptic ulcer disease H. pylori infection Gastritis Surgical History H/O colonoscopy H/O endoscopy Hx of cholecystectomy History of Social History Patient Tobacco Use Status: Never used Tobacco Review of Systems Const All systems reviewed & are unremarkable except as noted in HPI and below Denies chills, Denies fever(s), Denies headache(s), Denies poor appetite and Denies weakness ENT Denies headache(s) Card Denies chest pain, Denies irregular heart rhythm, Denies palpitations and Denies dyspnea Resp Denies cough, Denies excessive phlegm production and Denies dyspnea GI Denies abdominal pain, Denies bloating, Denies hematochezia, Reports change in bowel habits, Reports constipation, Denies heartburn, Denies diarrhea, Denies nausea and Denies vomiting Denies urinary frequency Musc Denies back pain, Denies muscle weakness and Denies numbness Skin/Breast Denies changing lesions and Denies unusual bruising Neuro Denies headache(s), Denies numbness, Denies paresthesias and Denies weakness Psych Denies anxiety and Denies depression Endo Denies palpitations Jarrod/Lymph Denies lymphadenopathy Physical Exam Const General: cooperative and no acute distress Nutritional Appearance: well nourished Orientation/consciousness: patient oriented x3 Limitations: no limitations HEENT Head: Yes normocephalic and Yes atraumatic Ears: hearing grossly normal bilaterally Resp Effort & Inspection: normal respiratory effort, no audible wheezes, no cough and no respiratory distress Cardio Jugular venous distension: no JVD GI Other: Anal examination reveals a wide area of pruritus ani with moisture in the surrounding skin. No thrombosed hemorrhoids identified. There is a sentinel pile which may be chronic from a previous history of anal fissures. Rectal examination is limited due to the pruritus ani. Digital examination reveals normal sphincter tone with no tenderness in the anal canal. Inspection: Yes normal to inspection Skin Other: Warm, dry, no rash Neuro General: patient oriented x3 Extrem General: Yes no clubbing, cyanosis or edema Assessment & Plan Assessment & Plan (1) Pruritus ani: Code(s): L29.0 - Pruritus ani Plan 73-year-old female patient presenting with complaints of rectal pain and skin irritation. On examination the patient has a wide area of pruritus ani which may benefit from topical zinc oxide. She should also continue warm soaks dry off the skin very well. I have asked her to return in 2 weeks for follow-up examination. Medications: New menthol-zinc oxide 0.44-20.6 % (Calmoseptine) 1 appl topical QID PRN 113 grams 0RF skin irritation L29.0 - Pruritus ani Coding Level of Care Code New Pt Level 4 (05577) Diagnoses Pruritus ani L29.0
[2023-08-08 09:00] VITALS: BP 188/79; PULSE 67; BMI 34.4
== END 2023-08-08 09:13 | disposition home or self-care (01) ==
PROVIDERS: PCP Internal Medicine; Referring Provider Internal Medicine; Visit Provider Surgery
DX: L29.0 Pruritus ani (principal)
CPT/HCPCS: 99204

== ENCOUNTER → 2023-08-08 08:49 | Outpatient (BNVA) | payer MEDICARE, OTHER, SELFPAY | PROVIDERS: PCP Internal Medicine; Referring Provider Internal Medicine; Visit Provider Surgery | DX: L29.0 Pruritus ani (principal) | CPT/HCPCS: 99202 ==

== ENCOUNTER 2023-08-22 09:02 | Outpatient (AMB) | payer MEDICARE, OTHER, SELFPAY ==
--- NOTE | 2023-08-22 09:07 | MHC.OFFVIS ---
Intake Vital Signs 08/22/23 09:14 Height 5 ft 2 in Weight 190 lb 4 oz BMI 34.8 BP 153/70 H Blood Pressure Location Lt brachial Position Sitting Pulse 66 Intake Visit Reasons: 2 wk follow up Thrombosed Hemorrhoid Intake Note: Patient is seen in office for 2 wks follow up visit, following thrombosed hemorrhoids. Pt c/o: admits to improving, has been applying cream with relief, no longer has a rash in the back, however has an area in the left groin that is itchy and has a rash Veterinary Medicine Scientist Required: No Accompanied by: Self / Same As Patient Allergies No Known Allergies Allergy (Mild, Unverified 08/22/23 09:15) NONE Medication List - Last Reconciled 08/22/23 by Paddy Gutierres MD amlodipine 1 tab PO DAILY menthol-zinc oxide 0.44-20.6 % (Calmoseptine) 1 appl topical QID PRN nadolol 1 tab PO DAILY nystatin 1 appl topical BID pantoprazole 1 tab PO DAILY HPI HPI Comments History of Present Illness Details Patient returns for follow-up examination recently diagnosed with pruritus ani and started on topical Calmoseptine. She reports a dramatic improvement in her symptoms and denies any further pain. She does report some itchiness in the groin anteriorly with a small rash. She denies any bleeding per rectum. PFSH Medical History Polyp of hepatic flexure of colon Bakers cyst HTN (hypertension) Peptic ulcer disease H. pylori infection Gastritis Surgical History H/O colonoscopy H/O endoscopy Hx of cholecystectomy History of Social History Patient Tobacco Use Status: Never used Tobacco Physical Exam Vital Signs: Last Vital Signs Pulse 66 08/22/23 09:14 BP 153/70 H 08/22/23 09:14 BMI result Body Mass Index 34.8 GI Other: Rectal examination much improved with no further pruritus a knife. Groin examination does reveal bilateral fungal skin infection. Skin Other: Warm, dry Assessment & Plan Assessment & Plan (1) Fungal skin infection: Code(s): B36.9 - Superficial mycosis, unspecified Plan: Patient has a bilateral groin area of fungal skin infection. I recommended nystatin cream. She should follow up as needed. (2) Pruritus ani: Code(s): L29.0 - Pruritus ani Plan: Much improved today with no further further pruritus ani. She should use the Calmoseptine as needed for recurrence. Medications: New nystatin 1 appl topical BID 15 grams 0RF B36.9 - Superficial mycosis, unspecified Coding Level of Care Code Est Pt Level 3 (91430) Diagnoses Fungal skin infection B36.9 Pruritus ani L29.0
[2023-08-22 09:14] VITALS: BP 153/70; PULSE 66; BMI 34.8
== END 2023-08-22 09:27 | disposition home or self-care (01) ==
PROVIDERS: PCP Internal Medicine; Visit Provider Surgery
DX: B36.9 Superficial mycosis, unspecified (principal); L29.0 Pruritus ani
CPT/HCPCS: 99213

== ENCOUNTER → 2023-08-22 09:02 | Outpatient (BNVA) | payer MEDICARE, OTHER, SELFPAY | PROVIDERS: PCP Internal Medicine; Visit Provider Surgery | DX: L29.0 Pruritus ani (principal); B36.9 Superficial mycosis, unspecified | CPT/HCPCS: 99212 ==

== ENCOUNTER 2024-01-31 09:43 | Outpatient (REF) | payer MEDICARE, OTHER, SELFPAY ==
[2024-01-31 11:12] LABS: MANUAL DIFF FLAG NO
[2024-01-31 11:19] LABS: Basophils Absolute Auto 0.1 X10*3/uL (0.0-0.2); Basophils Percent Auto 0.7 % (0-2); Eosinophils Absolute Auto 0.2 X10*3/uL (0.0-0.4); Eosinophils Percent Auto 2.7 % (0-4); Hematocrit 40.7 % (37.0-47.0); Hemoglobin 13.5 g/dl (12.0-16.0); Imm Gran Abs Auto 0.04 X10*3/uL (0.00-0.03); Imm Gran Pct Auto 0.5 % (0.0-0.4); Lymphocytes Absolute Auto 3.8 X10*3/uL (1.2-4.9); Lymphocytes Percent Auto 45.4 % (20-40); Mean Corpuscular HGB Conc 33.2 g/dl (31.0-35.0); Mean Corpuscular Hemoglobin 29.5 pg (27.0-33.0); Mean Corpuscular Volume 88.9 fL (80.0-98.0); Mean Platelet Volume 10.3 fL (9.4-12.3); Monocytes Absolute Auto 0.6 X10*3/uL (0.1-1.2); Monocytes Percent Auto 7.6 % (2-11); Neutrophils Absolute Auto 3.6 x10*3/uL (2.0-8.3); Neutrophils Percent Auto 43.1 % (45-73); Platelet Count 230 X10*3/uL (160-400); Red Blood Count 4.58 X10*6/uL (4.20-5.50); Red Cell Distribution Width 13.2 % (11.0-16.0); White Blood Count 8.4 X10*3/uL (4.8-10.8)
[2024-01-31 11:28] LABS: Alanine Aminotransferase 15 U/L (0-31); Albumin Level 4.1 g/dL (3.5-5.0); Alkaline Phosphatase 53 U/L (39-117); Anion Gap 11 (12-20); Aspartate Amino Transferase 17 U/L (5-31); Bilirubin Total 0.7 mg/dL (0.0-1.0); Blood Urea Nitrogen 16 mg/dL (9-16); Calcium 9.4 mg/dL (8.4-10.2); Carbon Dioxide 28 mmol/L (22-29); Chloride 104 mmol/L (96-108); Estimated Glomerular Filt Rate > 60; Glucose Random 94 mg/dL (60-115); Potassium 4.1 mmol/L (3.3-5.1); Sodium 139 mmol/L (135-145); Total Protein 7.1 g/dL (6.5-8.0)
== END 2024-01-31 09:44 | disposition home or self-care (01) ==
LOC: HO.10HDL 09:43
PROVIDERS: Visit Provider Internal Medicine
DX: I10 Essential (primary) hypertension (principal); K21.9 Gastro-esophageal reflux disease without esophagitis
CPT/HCPCS: 36415; 80053; 85025

== ENCOUNTER 2024-03-18 14:51 | Outpatient (REF) | payer MEDICARE, OTHER, SELFPAY ==
[2024-03-18 15:15] LABS: MANUAL DIFF FLAG NO
[2024-03-18 15:40] LABS: Basophils Absolute Auto 0.1 X10*3/uL (0.0-0.2); Basophils Percent Auto 0.5 % (0-2); Eosinophils Absolute Auto 0.3 X10*3/uL (0.0-0.4); Eosinophils Percent Auto 2.5 % (0-4); Hemoglobin 13.2 g/dl (12.0-16.0); Imm Gran Abs Auto 0.05 X10*3/uL (0.00-0.03); Imm Gran Pct Auto 0.5 % (0.0-0.4); Lymphocytes Absolute Auto 4.8 X10*3/uL (1.2-4.9); Lymphocytes Percent Auto 45.9 % (20-40); Mean Corpuscular HGB Conc 33.8 g/dl (31.0-35.0); Mean Corpuscular Hemoglobin 29.7 pg (27.0-33.0); Mean Corpuscular Volume 87.8 fL (80.0-98.0); Mean Platelet Volume 10.5 fL (9.4-12.3); Monocytes Absolute Auto 0.8 X10*3/uL (0.1-1.2); Monocytes Percent Auto 7.3 % (2-11); Neutrophils Absolute Auto 4.5 x10*3/uL (2.0-8.3); Neutrophils Percent Auto 43.3 % (45-73); Platelet Count 240 X10*3/uL (160-400); Red Blood Count 4.44 X10*6/uL (4.20-5.50); Red Cell Distribution Width 13.2 % (11.0-16.0); White Blood Count 10.4 X10*3/uL (4.8-10.8)
[2024-03-18 16:41] LABS: Alanine Aminotransferase 19 U/L (0-31); Albumin Level 4.2 g/dL (3.5-5.0); Alkaline Phosphatase 59 U/L (39-117); Anion Gap 10 (12-20); Aspartate Amino Transferase 22 U/L (5-31); Bilirubin Total 0.6 mg/dL (0.0-1.0); Blood Urea Nitrogen 17 mg/dL (9-16); C Reactive Protein 0.46 mg/dL (< or = 0.50); Calcium 9.5 mg/dL (8.4-10.2); Carbon Dioxide 27 mmol/L (22-29); Chloride 106 mmol/L (96-108); Estimated Glomerular Filt Rate > 60; Glucose Random 87 mg/dL (60-115); Potassium 3.9 mmol/L (3.3-5.1); Sodium 139 mmol/L (135-145); Total Protein 7.2 g/dL (6.5-8.0)
== END 2024-03-18 14:52 | disposition home or self-care (01) ==
LOC: HO.LAB 14:51
PROVIDERS: PCP Internal Medicine; Visit Provider Internal Medicine
DX: M54.9 Dorsalgia, unspecified (principal); M79.669 Pain in unspecified lower leg
CPT/HCPCS: 36415; 80053; 82550; 85025; 86140

== ENCOUNTER 2024-07-24 09:19 | Outpatient (REF) | payer MEDICARE, OTHER, SELFPAY ==
[2024-07-24 10:16] LABS: MANUAL DIFF FLAG NO
[2024-07-24 10:20] LABS: Basophils Absolute Auto 0.1 X10*3/uL (0.0-0.2); Basophils Percent Auto 0.7 % (0-2); Eosinophils Absolute Auto 0.2 X10*3/uL (0.0-0.4); Eosinophils Percent Auto 2.2 % (0-4); Hematocrit 42.8 % (37.0-47.0); Imm Gran Abs Auto 0.06 X10*3/uL (0.00-0.03); Imm Gran Pct Auto 0.6 % (0.0-0.4); Lymphocytes Absolute Auto 4.6 X10*3/uL (1.2-4.9); Lymphocytes Percent Auto 46.8 % (20-40); Mean Corpuscular HGB Conc 32.7 g/dl (31.0-35.0); Mean Corpuscular Hemoglobin 29.2 pg (27.0-33.0); Mean Corpuscular Volume 89.4 fL (80.0-98.0); Mean Platelet Volume 10.5 fL (9.4-12.3); Monocytes Absolute Auto 0.6 X10*3/uL (0.1-1.2); Monocytes Percent Auto 6.5 % (2-11); Neutrophils Absolute Auto 4.2 x10*3/uL (2.0-8.3); Neutrophils Percent Auto 43.2 % (45-73); Platelet Count 246 X10*3/uL (160-400); Red Blood Count 4.79 X10*6/uL (4.20-5.50); Red Cell Distribution Width 13.1 % (11.0-16.0); White Blood Count 9.8 X10*3/uL (4.8-10.8)
--- OUTSIDE RECORDS SUMMARY | 2024-07-24 10:28 | XMS_ITS ---
Author Organization [facility] Address [address] [place] [address] Care Team Providers Care Mailroom Courier Name Role Phone Dimitris Jacome MD Primary Care Provider Tin Ochoa Jr Unavailable ALLERGIES No Known Allergies REASON FOR VISIT Patient presents today for gerd, abdominal pain MEDICATIONS Medication SIG (Take, Route, Frequency, Duration) Notes Start Date End Date Status Nadolol 40 MG 1 tablet Orally Once a day for 30 day(s) Active amLODIPine Besylate 10 MG 1 tablet Orally Once a day Active Pantoprazole Sodium 40 MG TAKE 1 TABLET BY MOUTH EVERY DAY FOR 30 DAYS for 90 Active VITAL SIGNS Temperature 98.0 degrees Fahrenheit 02/14/20 24 Blood pressure systolic 000 mm Hg 02/14/20 24 Blood pressure diastolic 00 mm Hg 024 Height 62 in 02/14/2024 Weight 187 lb 6 oz lbs 02/14/2024 BMI 34.27 kg/m2 02/14/2024 Encounters Encounter Location Date Provider Diagnosis [facility] [address] [place] [address] 02/14/2024 Tin Corbin Jr Gastroesophageal reflux disease K21.9 and Gastric intestinal metaplasia K31.A0 ASSESSMENTS Encounter Date Diagnosis Assessment Notes Treatment Notes Treatment Clinical Notes 02/14/2024 Gastroesophageal reflux disease (ICD-10 - K21.9) Gastroesophageal reflux disease material was printed 02/14/2024 Gastric intestinal metaplasia (ICD-10 - K31.A0) PLAN OF TREATMENT Treatment Notes Assessment Notes Gastroesophageal reflux disease Gastroes ophageal reflux disease material was printed Next Appt Details Follow Up: 1 Year, Reason: Provider Name:Tin awad Jr, 02/12/2025 09:40:00 AM, [address], [address], [place], [address],
--- OUTSIDE RECORDS SUMMARY | 2024-07-24 10:28 | XMS_ITS | Patient Health Record ---
Author Organization [facility] maryanne Anthony Address [address] [place] [address] Care Team Providers Care Industrial Engineering Name Role Phone Dimitris Jacome MD Primary Care Provider Steven Dewey Unavailable [phone] Reason For Referral No Information Medications Medication SIG (Take, Route, Frequency, Duration) Notes Start Date End Date Status Corgard Not-Taking Nadolol 40 MG TAKE 1 TABLET BY MILAGRO EVERY DAY Oral for 90 Active amLODIPine Besylate 10 MG Orally Active Nadolol 40 MG 1 tablet Orally Once a day Active Protonix 40 MG Orally Not-T aking Immunizations Vaccine Route Administration Date Status Comme nts COVID-19 Pfizer BioNTech Vaccine Unknown 09/23/2020 Administered 09/02/2020 Social History Tobacco Use: Social History Observation Description Date Details (start date - stop date) Never Smoker NA - NA Tobacco Use/Smoking Question Answer Notes Are you a: nonsmoker Alcohol Screen Question Answer Notes Did you have a drink containing alcohol in the p ast year? No Points 0 Interpretation Negative Plan Of Treatment Pending Test Test Name Order Date X ray : Foot, left 3V 11/02/2020 16930- Debride <25 sq cm 01/22/2014 96028 I&D ABSCESS- SIMPLE,SINGLE 014 Insurance Providers Payer Name Payer Address Payer Phone Subscriber Number Group Number Insured Name Patient Relationship to Insured Coverage Start Date Coverage End Date Medicare National [facility] [address] [facility] [place] [address] [id number] Maya Cruz Self - patient is the insured [employer] [address] [place] [address] [id number] [phone] NancyMaya Self - patient is the insured Medical (General) History Medical History History ICD Code Arthritis Hypertension Surgical History Surgery Date(Month/Year) section x 2
--- OUTSIDE RECORDS SUMMARY | 2024-07-24 10:29 | XMS_ITS | Patient Health Record ---
Author Organization [facility] Address [address] [place] [address] Care Team Providers Care Greenhouse Grower Name Role Phone Dimitris Jacome MD Primary Care Provider Tin Ochoa Jr Unavailable ALLERGIES No Known Allergies REASON FOR REFERRAL No Information MEDICATIONS Medication SIG (Take, Route, Frequency, Duration) Notes Start Date End Date Status Nadolol 40 MG 1 tablet Orally Once a day for 30 day(s) Active amLODIPine Besylate 10 MG 1 tablet Orally Once a day Active Pantoprazole Sodium 40 MG TAKE 1 TABLET BY MOUTH EVERY DAY FOR 30 DAYS for 90 Active IMMUNIZATIONS Vaccine Route Administration Date Status Comme nts Flu vaccine no Preserv 3 and > Unknown 03/12/2014 Admin istered Influenza Unknown 04/07/2020 Administered Influenza Unknown 03/16/2022 Administered Influenza Unknown 03/21/2023 Administered SOCIAL HISTORY Sex Assigned At : Social History Observation Description Sex Assigned At Unknown PROBLEMS Problem Type ICD Code Onset Dates Problem Status W/U Status Risk SNOMED Code Notes Problem Colon cancer screening (Z12.11) Active confirmed 125805112 Problem Gastroesophageal reflux disease (K21.9) Active confirmed Gastroesophagea l reflux disease (825215635) Problem Irritable bowel syndrome with constipation (K58.1) Active confirmed 314181235 Problem Gastric intestinal metaplasia (K31.A0) Active confirmed 94487846 VITAL SIGNS Temperature 98.0 degrees Fahrenheit 02/14/2024 Blood pressure diastolic 00 mm Hg 02/14/2024 Height 62 in 02/14/2024 Blood pressure systolic 000 mm Hg 02/14/2024 Weight 187 lb 6 oz lbs 02/14/2024 BMI 34.27 kg/m2 02/14/2024 Encounters Encounter Location Date Provider Diagnosis [facility] [address] [place] [address] 02/14/2024 Tin Corbin Jr Gastroesophageal reflux disease K21.9 and Gastric intestinal metaplasia K31.A0 ASSESSMENTS Encounter Date Diagnosis Assessment Notes Treatment Notes Treatment Clinical Notes 02/14/2024 Gastroesophageal reflux disease (ICD-10 - K21.9) Gastroesophageal reflux disease material was printed 02/14/2024 Gastric intestinal metaplasia (ICD-10 - K31.A0) PLAN OF TREATMENT Future Test Test Name Order Date COLONOSCOPY 12/08/2011 COLONOSCOPY 01/12/2017 UPPER GI ENDOSCOPY 06/08/2022 COLONOSCOPY 06/08/2022 UPPER GI ENDOSCOPY 12/28/2022 Next Appt Details Provider Name:Tin awad Jr, 02/12/2025 09:40:00 AM, [address], [address], [place], [address], Insurance Providers Payer Name Payer Address Payer Phone Subscriber Number Group Number Insured Name Patient Relationship to Insured Coverage Start Date Coverage End Date MEDICARE OF [place] [address] [place] [address] [id number] LEEANNA MCNULTY Self - patient is the insured [facility] [address] [place], [place] [id number] LEEANNA MCNULTY Self - patient is the insured MEDICAL (GENERAL) HISTORY Medical History History ICD Code EGD 02/18, gastric intestinal metaplasia along the lesser curvature of the antrum but not widespread. peptic ulcer disease hypertension bakers cyst Colonoscopy 06/20, negative for polyps, e xam was somewhat limited by prep. Surgical History Surgery Date(Month/Year) cholecystectomy
--- OUTSIDE RECORDS SUMMARY | 2024-07-24 10:29 | XMS_ITS | Patient Health Record ---
Author Organization [facility] Address [address] [place] [address] Care Team Providers Care Information Security Specialist Name Role Phone Nikole Simpson Unavailable [phone] Reason For Referral No Information Medications Medication SIG (Take, Route, Fr equency, Duration) Notes Start Date End Date Status Fosamax 70MG 1 ORAL EVERY WEEK for -3 [facility]- 06/05/2013 Active Calcium 1 ORAL daily for -3 [facility] 02/12/2013 Active Nadolol 1 ORAL daily for -3 [facility] 02/12/2013 Active Magnesium ORAL for -3 [facility] 02/12/2013 Active amLODIPine Besylate 1 ORAL daily for -3 [facility] 02/12/2013 Active Problems Problem Type SNOMED Code ICD Code Onset Dates Problem Status W/U Status Risk Notes Problem Sarcoidosis (46986545) Sarcoidosis (135) Active confirmed Major Problem Benign essential hypertension (3961624) Essential hypertension, benign (401.1) Active confirmed Major Problem Urinary tract infectious disease (disorder) (94478914) Urinary tract infection, site not specified (599.0) Active confirmed Diag Problem Menopausal symptom (84477386) Symptomatic menopausal or female climacteric states (627.2) Active confirmed Major Problem Osteoporosis (34971084) Unspecified osteoporosis (733.00) Active confirmed Diag Problem Gynecological examination normal (472313070167903) Routine gynecological examination (V72.31) Active confirmed Major Problem Screening for malignant neoplasm of colon (901577935) Special screening for malignant neoplasms, colon (V76.51) Active confirmed Major Plan Of Treatment No Information Insurance Providers Payer Name Payer Address Payer Phone Subscriber Number Group Number Insured Name Patient Relationship to Insured Coverage Start Date Coverage End Date MEDICARE [address] [place], [place] [id number] [phone] [id number] LEEANNA MCNULTY Self - patient is the insured [facility] [address] [address] [place] [id number] LEEANNA MCNULTY Self - patient is the insured
--- OUTSIDE RECORDS SUMMARY | 2024-07-24 10:29 | XMS_ITS ---
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
--- OUTSIDE RECORDS SUMMARY | 2024-07-24 10:29 | XMS_ITS | Data Portability ---
Author Organization [facility] Address [address] [place] [address] Care Team Providers Care Diagram Clerk Name Role Phone ANITA OGLESBY Primary Care Provider [phone] Assessment Encounter Date Assessment Date Assessment LastModified by Organization Details LastModified Time 12/15/2023 12/15/2023 I am seeing the patient today under the supervision of who was available but who did not see the patient. Please see procedure documentation for further information about the injection performed today. [email or web address] Not available 12/15/2023 12:27:38 Plan of Treatment Reminders Order Date Submit Date Provider Last Modified By Organization Details Last Modified Time Details Appointments None recorded. Lab None recorded. Referral None recorded. Procedures None recorded. Surgeries None recorded. Imaging None recorded. Medication Orders Euflexxa 10 mg/mL (mw 2.4-3.6 million) intra-acacia cular syringe 2023 024 [id number], [address], [place], [address], 09:57:50 Patient TargetsNo targets recorded. Patient Instructions Encounter Date Encounter Id Patient Instructions Last Modified By Organization Details Last Modified Time 12/15/2023 [id number] You have been provided with a viscosupplementation injection in order to reduce the pain that you are experiencing from your arthritis. The injection consists of a lubricating injection called hyaluronic acid. Please note that not everyone will have a lasting response following the injection. PATIENT INSTRUCTIONS I recommend icing the affected area for 20 minutes 3-4 times per day. It is recommended that you refrain from any high level activities using the joint or limb that was injected for approximately 24-48 hours. Normal day-to-day activities are generally not a problem. POSSIBLE SIDE EFFECTS Individuals with dark complexions may experience some skin discoloration locally at the site of the injection. There is the possibility of an increase in discomfort within 48 hours following the injection. This is called a ? f lare? . To help minimize the chances of this, please see the post-injection instructions above. There is a less than 1% chance of an infection. If you notice any signs of infection (redness, warmth, drainage, fever greater than 100 degrees) please call our office or contact us through the portal FERNIE. Not available 12/15/2023 12:27:43 Reason for Referral None Reported. Problems Name Problem SNOMED Code Status Onset Date Resolution Date Notes Provider Name and Address Organization Details Recorded Time Osteoarthri tis of knee 577101182 Active 2023 Mack Raya PA-C [address], [place], [address], [facility] 4 06:37:51 Osteoarthri tis of left knee joint 5287985458456 09 Active 2023 Jelly Valle i, PA-C [address], [place], [address], [facility] 4 14:53:23 Problem Notes None recorded. Procedures Surgical History Date Name Laterality Status Provider Name and Address Organization Details Recorded Time 4 Euflexxa Knee Injection completed Bonilla Vance PA-C [address], [place], [address], [facility] 12/15/2023 12:27:54 4 Euflexxa Knee Injection completed Carlos Cavazos PA-C [address], [place], [address], [facility] 12/07/2023 15:47:24 4 Euflexxa Knee Injection completed Mack Raya PA-C [address], [place], [address], [facility] 12/01/2023 06:37:46 Imaging Results None recorded. Procedure Notes None recorded. Medical Equipment None Reported. Allergies No known drug allergies Medications Name Sig Start Date Stop Date Status Note LastModified by Organization Details LastModified Time amoxicillin 500 mg tablet TAKE 1 TABLET BY MOUTH EVERY 8 HOURS UNTIL GONE active Not Available Not Available N ot Available famotidine 20 mg tablet TAKE 1 TABLET BY MOUTH TWICE A DAY active Not Available Not Available No t Available amlodipine 10 mg tablet TAKE 1 TABLET BY MOUTH EVERY DAY active Not Available Not Available No t Available pantoprazole 40 mg tablet,delay ed release TAKE 1 TABLET BY MOUTH EVERY DAY FOR 30 DAYS active Not Available Not Available No t Available nystatin 100,000 unit/gram topical cream APPLY TO AFFECTED AREA 2 TIMES A DAY active Not Available Not Available Not Available nadolol 40 mg tablet TAKE 1 TABLET BY MOUTH EVERY DAY active Not Available Not Available No t Available Euflexxa 10 mg/mL (mw 2.4-3.6 million) intra-articu lar syringe Inject 2 mL by intra-artic ular route for 21 days. 2023 active Not Available Not Available Not Avai lable nadolol Nadolol 40MG Tablet 2022 active Statu s: 'Curr ent'; Not Available Not Available Not Available Calmoseptine 0.44 %-20.6 % topical ointment APPLY TO AFFECTED AREA 4 TIMES A DAY NEEDED FOR SKIN IRRITATION active Not Available Not Available N ot Available Vitals Date Recorded Body height Body mass index (BMI) Body weight Provider Name and Address Organization Details Last Updated DateTime 12/01/2023 154.94 cm 35.3 kg/m2 68659.77 g CHRISTIAN [address], [place], [address], [facility] 12/01/2023 09:51:03 Date Recorded Body height Body mass index (BMI) Body weight Provider Name and Address Organization Details Last Updated DateTime 12/08/2023 154.94 cm 35.3 kg/m2 36057.77 g Tiera Frederick [facility] 12/08/2023 09:43:26 Date Recorded Body height Body mass index (BMI) Body weight Provider Name and Address Organization Details Last Updated DateTime 12/15/2023 154.94 cm 35.3 kg/m2 32313.77 g KAYLIA L'HEUREUX [facility] 12/15/2023 12:56:33 Date Recorded Body height Body mass index (BMI) Body weight Provider Name and Address Organization Details Last Updated DateTime 02/15/2024 154.94 cm 35.3 kg/m2 25490.77 g Josette Patterson [facility] 02/15/2024 11:07:43 Social History None recorded. Functional Status None recorded. Mental Status None recorded. Family History Nothing Reported. Medical History No medical history recorded. Gynecological HistoryNo gynecological history recorded. Obstetrics History GPAL:G 0 P 0 0 0 0 Past Encounters Encounter ID Performer Location Encounter Start Date Encounter Closed Date Diagnosis/Indication Diagnosis SNOMED-CT Code Diagnosis ICD10 Code Diagnosis Note [id number] CHRISTIAN Mehta [address] [place] [address] 09/20/2023 14:19:56 09/20/2023 15:58:00 Osteoarthritis of left knee joint 7523684791 69028 M17.12 [id number] CHRISTIAN Osman [address] [place] [address] 10/26/2023 11:15:44 11/21/2023 12:19:28 Pain in left foot 5742839838 31120 M79.774 [id number] CHRISTIAN Calderon [address] [place] [address] 12/01/2023 09:42:07 12/18/2023 13:37:43 Osteoarthritis of knee 654983758 M17.9 [id number] CHRISTIAN Garcia [address] [place] [address] 12/08/2023 09:31:16 12/08/2023 09:53:05 Bilateral osteoarthritis of knees 6451657054 46759 M17.0 [id number] CHRISTIAN Hyde [address] [place] [address] 12/15/2023 12:47:14 01/15/2024 08:16:35 Bilateral osteoarthritis of knees 1685065020 81140 M17.0 [id number] CHRISTIAN Osmanannabelbennie [address] [place] [address] 02/15/2024 10:24:53 03/18/2024 13:13:10 Foot pain 32835181 M79.672 Health Concerns Section Related Observation LastModified by Organization Detai ls LastModified Time None Recorded Concern Status LastModified by Organization Details LastModified Time None Recorded Advance Directives Directive None Recorded Payers Encounter Date Sequence Insurance Name Policy Number Policy Terry Covered Member ID Terry Member ID Guarantor Name 10/26/2023 1 MEDICARE B-SD: [facility] Maya Cruz [id number] Maya Stochtomasa 10/26/2023 2 [employer] (EPO) Maya Cruz [id number] Maya Stochtomasa 12/01/2023 1 MEDICARE B-SD: [facility] Maya Stochel [id number] Maya Stochel 12/01/2023 2 [employer] (EPO) Maya Cruz [id number] Maya Stochel 12/08/2023 1 MEDICARE B-SD: [facility] Maya Stochel [id number] Maya Stochel 12/08/2023 2 [employer] (EPO) Maya Stochtomasa [id number] Maya Stochel 12/15/2023 1 MEDICARE B-SD: [facility] Maya Stochel [id number] Maya Stochel 12/15/2023 2 [employer] (POS) [id number] Jian Cruz [id number] Maya Stochel 02/15/2024 1 MEDICARE B-SD: [facility] Maya Stochel [id number] Maya Stochel 02/15/2024 2 [employer] (POS) [id number] Jian Stochel [id number] Maya Cruz Notes Date Note Type Note Provider Name and Address Organization Details Recorded Time text/html I am seeing the patient today under the supervision of Dr. Medina who was available but who did not see the patient.HPI: 73-year-old female presents for recheck re: left foot pain. She reports an ingrown hallux toenail was removed a week ago and since then has no pain with her hallux. Now complains of pain over the dorsal lateral foot. Very mild but just wondering if she needs PT. Denies heel painPast family, medical, social history and review of systems has been reviewed, updated and signed by me and is located in the patient? s chart.Examination: The patient is well appearing, alert and oriented x3 and in no acute distress. Gait is antalgic. Normal symmetric alignment appreciated in stance. There is minimal tenderness over the dorsolateral forefoot and no bony tenderness. Plantar Fascia with normal contour. Range of motion is full and strength is intact. Neurovascularly intact distally. No gross instability. Skin is without lesions.X-rays previously ordered, obtained and reviewed at [facility], a ? ve view weight bearing series of the foot and ankle reveals no fractures, dislocations or bony lesions.Impression/Plan: Left dorsolateral foot pain, possible extensor tendinitis. Continue epsom salt soaks which seem to help and ice when needed. Rest the foot and hold off on PT. Now that her gait is more normal with the resolution of her ingrown toenail I anticipate this problem will resolve.[facility] speech recognition esthetician makeup artist software was used to create portions of this document. An attempt at proofreading has been made to minimize errors. Please call for corrections. Nona De La Fuente PA-C [address] [facility] [facility], [place], [address], [facility] 10/26/2023 12:36:39 4 text/html I am seeing the patient today under the supervision of {{Rajan thrasher*}}who was available but who did not see the patient. Reason For VisitPatient is here today for viscosupplementation injection. Patient reports no adverse reaction from previous injections. Physical FindingsEvaluation of the knees reveal no evidence of infection, no significant joint effusion, no warmth, or erythema. The injection sites are benign. Calves are supple and nontender. 4+/5 strength. Some discomfort with range of motion. Assessment? Osteoarthritis of knee PlanInjection was administered in the office today.I recommend ice, restriction of activities and re-evaluation next week for follow up injection. Mack Raya PA-C [address], [place], [address], [facility] 12/01/2023 15:38:31 4 text/html I am seeing the patient today under the supervision of Dr. Medina who was available but who did not see the patient.HPI: 73-year-old female presents for recheck regarding left foot and ankle pain. Patient reports she saw her chiropractor who ordered a custom orthotic for her shoe. Apparently with the orthotic her pain has resolved. She is walking much better now. She no longer has the pain over the dorsal lateral aspect of the foot and ankle.Past family, medical, social history and review of systems has been reviewed, updated and signed by me and is located in the patient? s chart.Examination: The patient is well appearing, alert and oriented x3 and in no acute distress. Gait is normal. There is minimal tenderness over the dorsolateral forefoot and no bony tenderness. Plantar Fascia with normal contour. Range of motion is full and strength is intact. Neurovascularly intact distally. No gross instability. Skin is without lesions.X-rays previously ordered, obtained and reviewed at [facility], a ? ve view weight bearing series of the foot and ankle reveals no fractures, dislocations or bony lesions.Impression/Plan: Left dorsolateral foot pain, possible extensor tendinitis. Resolving with use of orthotic in her shoe. Recommend continuing supportive shoe wear and use of the orthotic. If symptoms worsen she will make a follow-up appointment.[facility] speech recognition esthetician makeup artist software was used to create portions of this document. An attempt at proofreading has been made to minimize errors. Please call for corrections. Nona De La Fuente PA-C [address], [place], [address], [facility] 02/15/2024 12:36:44 OBGyn Episode No OBEpisode recorded.
--- OUTSIDE RECORDS SUMMARY | 2024-07-24 10:30 | XMS_ITS ---
Author Organization [facility] Address [address] [place] [address] Care Team Providers Care Heavy Forger Name Role Phone Dimitris Jacome MD Primary Care Provider UnavailTin Dumont Jr [phone] REASON FOR VISIT pathology Encounters Encounter Location Date Provider Diagnosis [facility] [address] [place] [address] 02/24/2023 Tin Corbin Jr PLAN OF TREATMENT Next Appt Details Provider Name:Tin awad Jr, 02/12/2025 09:40:00 AM, [address], [address], [place], [address],
[2024-07-24 10:36] LABS: Alanine Aminotransferase 24 U/L (0-31); Albumin Level 4.1 g/dL (3.5-5.0); Alkaline Phosphatase 55 U/L (39-117); Anion Gap 10 (12-20); Aspartate Amino Transferase 24 U/L (5-31); Bilirubin Total 0.8 mg/dL (0.0-1.0); Blood Urea Nitrogen 16 mg/dL (9-16); Calcium 9.3 mg/dL (8.4-10.2); Carbon Dioxide 26 mmol/L (22-29); Chloride 108 mmol/L (96-108); Cholesterol 161 mg/dL (<200); Estimated Glomerular Filt Rate > 60; Glucose Fasting 92 mg/dL (60-99); HDL Cholesterol 41 mg/dL (>40); LDL Cholesterol Calculated 98 mg/dL (<100); Potassium 4.2 mmol/L (3.3-5.1); Sodium 140 mmol/L (135-145); Total Protein 7.4 g/dL (6.5-8.0); Triglycerides 113 mg/dL (<150)
== END 2024-07-24 09:20 | disposition home or self-care (01) ==
LOC: HO.10HDL 09:19
PROVIDERS: Visit Provider Internal Medicine
DX: I10 Essential (primary) hypertension (principal); K21.9 Gastro-esophageal reflux disease without esophagitis; R35.1 Nocturia
CPT/HCPCS: 36415; 80053; 80061; 85025

== ENCOUNTER 2024-08-14 12:57 | Outpatient (REF) | payer MEDICARE, OTHER, SELFPAY ==
--- NOTE | ~2024-08-14 | MM_ITS ---
EXAMINATION: DXA BONE DENSITY AXIAL HISTORY: Estrogen deficiency TECHNIQUE: [employer] Dual energy absorptiometry (DEXA) of the lumbar spine, total left hip, and femoral neck was performed. COMPARISON: Comparison is made with the prior examination dated 09/08/2015. FINDINGS: The bone mineral density of the lumbar spine is 0.810 with a T-score of -3.1, and a Z-score of -2.0. This is indicative of osteoporosis. This represents a BMD change of -12.1% compared to the prior exam. This is statistically significant. The bone mineral density of the left total hip is 0.823 with a T-score of -1.5, and a Z-score of -0.2. This is indicative of osteopenia. This represents a BMD change of -9.0% compared to the prior exam. This is statistically significant. The bone mineral density of the left femoral neck is 0.753 with a T-score of -2.1, and a Z-score of -0.5. This is indicative of osteopenia. This represents a BMD change of -11.1% compared to the prior exam. MM/XR DEXA axial skeleton IMPRESSION: Based on bone mineral density, and according to World Health Organization (WHO) criteria, the diagnosis is consistent with osteoporosis. All bone density values are in grams per centimeter squared (g/cm2). Statistically, 68% of repeat scans fall within 1 SD (+/- 0.010 g/cm2 for AP spine L1-L4) and 1 SD (+/- 0.012 g/cm2 for femur total) FRAX is a trademark of the [employer]'s [place] for Metabolic Bone Disease, a World Health Organization (WHO) Collaborating Center. Electronically signed by: Unruly Jeff MD 08/14/2024 02:47 PM EDT
--- OUTSIDE RECORDS SUMMARY | 2024-08-14 15:21 | XMS_ITS | Patient Health Record ---
Author Organization [facility] maryanne Anthony Address [address] [place] [address] Care Team Providers Care Statistics Manager Name Role Phone Dimitris Jacome MD Primary Care Provider Steven Dewey Unavailable [phone] Reason For Referral No Information Medications Medication [...] X ray : Foot, left 3V 11/02/2020 56606- Debride <25 sq cm 01/22/2014 88938 I&D ABSCESS- SIMPLE,SINGLE 014 Insurance Providers Payer Name Payer Address Payer Phone Subscriber Number Group Number Insured Name Patient Relationship to Insured Coverage Start Date Coverage End Date Medicare [facility] [address] [place] [address] [id number] Maya Cruz Self - patient is the insured [employer] [address] [place] [address] [id number] [phone] NancyMaya Self - patient is the insured Medical (General) History Medical History History ICD Code Arthritis Hypertension Surgical History Surgery Date(Month/Year) section x 2
--- OUTSIDE RECORDS SUMMARY | 2024-08-14 15:21 | XMS_ITS ---
Author Organization [facility] Address [address] [place] [address] Care Team Providers Care Bush Hog Operator Name Role Phone Dimitris Jacome MD Primary Care Provider Tin Ochoa Jr Unavailable [phone] Allergies No Known Allergies REASON FOR VISIT Patient presents today for gerd, abdominal pain Medications Medication SIG (Take, Route, Frequency, Duration) Notes Start Date End Date Status Nadolol 40 MG 1 tablet Orally Once a day for 30 day(s) Active amLODIPine Besylate 10 MG 1 tablet Orally Once a day Active Pantoprazole Sodium 40 MG TAKE 1 TABLET BY MOUTH EVERY DAY FOR 30 DAYS for 90 Active Vital Signs Temperature 98.0 degrees Fahrenheit 02/14/20 24 Blood pressure systolic 000 mm Hg 02/14/20 24 Blood pressure diastolic 00 mm Hg 024 Height 62 in 02/14/2024 Weight 187 lb 6 oz lbs 02/14/2024 BMI 34.27 kg/m2 02/14/2024 Encounters Encounter Location Date Provider Diagnosis [facility] [address] [place] [address] 02/14/2024 Tin Corbin Jr Gastroesophageal reflux disease K21.9 and Gastric intestinal metaplasia K31.A0 Assessments Encounter Date Diagnosis (ICD Code) Assessment Notes Treatment Notes Treatment Clinical Notes Section Notes 02/14/2024 Gastroesophageal reflux disease (ICD-10 - K21.9) Gastroesophageal reflux disease material was printed At this time, she is doing well. She will continue pantoprazole as she is doing. We reviewed the pathology report in detail. We discussed diet, lifestyle modifications, and weight management regarding the treatment of reflux. Followup will be in 12 months. 02/14/2024 Gastric intestinal metaplasia (ICD-10 - K31.A0) At this time, she is doing well. She will continue pantoprazole as she is doing. We reviewed the pathology report in detail. We discussed diet, lifestyle modifications, and weight management regarding the treatment of reflux. Followup will be in 12 months. Plan Of Treatment Treatment Notes Assessment Notes Gastroesophageal reflux disease Gastroes ophageal reflux disease material was printed Next Appt Details Follow Up: 1 Year, Reason: Provider Name:Tin awad , 02/12/2025 09:40:00 AM, [address] [place] [address], [address], [place], [address], Progress Notes * LEEANNA MCNULTYDOB:1950 (74 yo F)Acc No.[id number]:02/14/2024 Progress Notes Patient:?LEEANNA MCNULTY Provider:?Tin Corbin MD :1950???Age:74 Y???Sex:Female D ate:02/14/2024 Address:[address] [place], [place] [id number] Pcp:Dimitris Jacome MD Subjective: * Chief Complaints: * ???1. Patient presents today for gerd, abdominal pain. * HPI: ???New symptom(s):? The patient is a pleasant 74-year-old woman seen today in followup. She underwent upper endoscopy in January 2023 because of gastric intestinal metaplasia. Biopsies at that time showed focal intestinal metaplasia in the antrum only. We reviewed this today. Since we saw her last, she's been doing well. Reflux symptoms are under good control on pantoprazole 40 mg daily although she only takes this about 2-3 times a week. She's had some dry mouth symptoms which is treating with xqlo-rno-ibvybki enzyme supplements. She has no dysphagia, hematemesis, or melena. Weight and appetite have been stable. * Medical History:?EGD 02/18, g astric intestinal metaplasia along the lesser curvature of the antrum but not widespread., Peptic ulcer disease, Hypertension, Bakers cyst, Colonoscopy 06/20, negative for polyps, exam was somewhat limited by prep.. * Surgical History:? , cholecystectomy . * Family History:?Father: dece ased.?Mother: , ??stomach cancer, diagnosed with Heart disease.? family history of stomach cancer, but negative for colon cancer. * Social History:?Tobacco Use:?Tobacco Use/Smoking?Are you a: nonsmoker.?Drugs/Alcohol:?Alcohol Screen?Points: 0, Interpretation: Negative.?Miscellaneous:?Marital status: . Occupation: retired. * Medications:?Taking Nadolol 40 MG Tablet 1 tablet Orally Once a day, Taking amLODIPine Besylate 10 MG Tablet 1 tablet Orally Once a day, Taking Pantoprazole Sodium 40 MG Tablet Delayed Release TAKE 1 TABLET BY MOUTH EVERY DAY FOR 30 DAYS , Medication List reviewed and reconciled with the patient * Allergies:?N.K.D.A. Objective: * Vitals:?Wt: 187 lb 6 oz, Ht: 62 in, BMI:34.27 Index, BP: 000/00 mm Hg, Temp: 98.0. * Examination: ???General Examination: ???On examination today, she appears well. Skin is anicteric. Lungs are clear. Heart shows a regular rate and rhythm. Abdomen is soft without focal masses or tenderness. Extremities are without edema. Assessment: * Assessment: 1.?Gastroesophageal reflux d isease - K21.9 (Primary)?2.?Gastric intestinal metaplasia - K31.A0? At this time, she is doing w ell. She will continue pantoprazole as she is doing. We reviewed the pathology report in detail. We discussed diet, lifestyle modifications, and weight management regarding the treatment of reflux. Followup will be in 12 months. Plan: * Treatment: * Procedure Codes:?G9903 Pt sc rn tbco id as non user, G9745 DOC RSN FOR NOT SCREEN/REC F/U HBP * Preventive Medicine:? ??Counseling:?Care goal follow-up plan:?Above Normal BMI Follow-up?Giving encouragement to exercise,?BMI management provided?Yes.? ??Urinary Incontinence:?Urinary Incontinence?Assessment:?Absent,?Plan of care documented:?No, reason not specified.? ??Screenings:?Fall Risk Screening?Fall Risk Assessment:?No falls in the past year,?Screening:?No falls in the past year,?Assessment:?Not performed, no reason specified,?Plan of Care:?Not documented, no reason specified.? * Follow Up:?1 Year * * Sign off status: Completed true * Provider:?Tin Corbin MD Date:?0 02/14/2024 Generated for Flex lynn/Niraj/Poonamitting on:?08/14/2024 03:21 PM EDT History and Physical Notes * HPI (History of Present Illness) Category Sub-Category Detail Notes Category Not es New symptom(s) The patient i s a pleasant 74-year-old woman seen today in followup. She underwent upper endoscopy in January 2023 because of gastric intestinal metaplasia. Biopsies at that time showed focal intestinal metaplasia in the antrum only. We reviewed this today. Since we saw her last, she's been doing well. Reflux symptoms are under good control on pantoprazole 40 mg daily although she only takes this about 2-3 times a week. She's had some dry mouth symptoms which is treating with kqnu-irr-ardidyl enzyme supplements. She has no dysphagia, hematemesis, or melena. Weight and appetite have been stable. Examination Category Sub-Category Detail Notes Category Not es General Examination On exami nation today, she appears well. Skin is anicteric. Lungs are clear. Heart shows a regular rate and rhythm. Abdomen is soft without focal masses or tenderness. Extremities are without edema.
--- OUTSIDE RECORDS SUMMARY | 2024-08-14 15:21 | XMS_ITS | Patient Health Record ---
Author Organization [employer] [facility] Address [address] [place] [address] Care Team Providers Care Human Resources Generalist Name Role Phone Nikole Simpson Unavailable [phone] Reason For Referral No Information Medications Medication SIG (Take, Route, Fr equency, Duration) Notes Start Date End Date Status Fosamax 70MG 1 ORAL EVERY WEEK for -3 [facility]- 06/05/2013 Active Calcium 1 ORAL daily for -3 [facility] 02/12/2013 Active Nadolol 1 ORAL daily for -3 [facility] 02/12/2013 Active Magnesium ORAL for -3 [facility] 02/12/2013 Active amLODIPine Besylate 1 ORAL daily for -3 [facility] 02/12/2013 Active Problems Problem Type SNOMED Code ICD Code Onset Dates Problem Status W/U Status Risk Notes Problem Sarcoidosis (95303509) Sarcoidosis (135) Active confirmed Major Problem Benign essential hypertension (8476775) Essential hypertension, benign (401.1) Active confirmed Major Problem Urinary tract infectious disease (disorder) (46132303) Urinary tract infection, site not specified (599.0) Active confirmed Diag Problem Menopausal symptom (97131068) Symptomatic menopausal or female climacteric states (627.2) Active confirmed Major Problem Osteoporosis (31903575) Unspecified osteoporosis (733.00) Active confirmed Diag Problem Gynecological examination normal (474150231764586) Routine gynecological examination (V72.31) Active confirmed Major Problem Screening for malignant neoplasm of colon (398843594) Special screening for malignant neoplasms, colon (V76.51) Active confirmed Major Plan Of Treatment No Information Insurance Providers Payer Name Payer Address Payer Phone Subscriber Number Group Number Insured Name Patient Relationship to Insured Coverage Start Date Coverage End Date MEDICARE [address] [place], [place] [id number] LEEANNA MCNULTY Self - patient is the insured [facility] [address] [address] [place] [id number] LEEANNA MCNULTY Self - patient is the insured
--- OUTSIDE RECORDS SUMMARY | 2024-08-14 15:22 | XMS_ITS ---
Author Organization [facility] Address [address] [place] [address] Care Team Providers Care Machine Clothing Replacer Name Role Phone Dimitris Jacome MD Primary Care Provider Brandi Corbin Jr, Tin Childers [phone] REASON FOR VISIT pathology Encounters Encounter Location Date Provider Diagnosis [facility] [address] [place] [address] 02/24/2023 Tin Corbin Jr Plan Of Treatment Next Appt Details Provider Name:Tin awad Jr, 02/12/2025 09:40:00 AM, [address], [address], [place], [address], Progress Notes * LEEANNA MCNULTYDOB:1950 (73 yo F)Acc No.[id number]:02/24/2023 Patient:?LEEANNA MCNULTY :1950???Age:73 Y???Sex:Female Address:[address] [place], [place] [address] [address] * true * Date:? Generated for Printi leah/Niraj/eTransmitting on:?08/14/2024 03:22 PM EDT
--- OUTSIDE RECORDS SUMMARY | 2024-08-14 15:22 | XMS_ITS ---
Author Organization [facility] Address [address] [place] [address] Care Team Providers Care Friction Paint Machine Tender Name Role Phone Ayaz ALCANTAR, Dimitris Primary Care Provider Tin Ochoa Jr REASON FOR VISIT gastrointestinal metaplasia Encounters Encounter Location Date Provider Diagnosis [facility] [address] [place], [place] [id number] 02/17/2023 Tin Corbin Jr Other specified disease of esophagus K22.89 and Gastric intestinal metaplasia K31.A0 Assessments Encounter Date Diagnosis (ICD Code) Assessment Notes Treatment Notes Treatment Clinical Notes Section Notes 02/17/2023 Other specified disease of esophagus (ICD-10 - K22.89) 02/17/2023 Gastric intestinal metaplasia (ICD-10 - K31.A0) Plan Of Treatment Next Appt Details Provider Name:Tin awad Jr, 02/12/2025 09:40:00 AM, [address], [address], [place], [address], Progress Notes * LEEANNA MCNULTYDOB:1950 (74 yo F)Acc No.[id number]:02/17/2023 EGD/MAC Patient:?LEEANNA MCNULTY Provider:?Tin Corbin MD :1950???Age:73 Y???Sex:Female D ate:02/17/2023 Address:[address] [place] [address] Pcp:Dimitris Jacome MD Subjective: * Chief Complaints: * ???1. Gastrointestinal metap lasia. * Medical History:? Objective: * Vitals:? Assessment: * Assessment: 1.?Other specified disease o f esophagus - K22.89 (Primary)???2.?Gastric intestinal metaplasia - K31.A0??? Plan: * Treatment: * Procedure Codes:?67900 UPPER GI ENDOSCOPY, BIOPSY * * The named appointment provid er may or may not be the originator of this progress note, and it is not deemed complete until electronically signed by the appointment provider. Sign off status: Pending * Provider:?Tin oCrbin MD Date:?0 02/17/2023 Generated for Flex lynn/Niraj/eTransmitting on:?08/14/2024 03:21 PM EDT
--- OUTSIDE RECORDS SUMMARY | 2024-08-14 15:22 | XMS_ITS | Patient Health Record ---
Author Organization [facility] Address [address] [place] [address] Care Team Providers Care Event Staff Member Name Role Phone Dimitris Jacome MD Primary Care Provider Tin Ochoa Jr Unavailable Allergies No Known Allergies Reason For Referral No Information Medications Medication SIG (Take, Route, Frequency, Duration) Notes Start Date End Date Status Nadolol 40 MG 1 tablet Orally Once a day for 30 day(s) Active amLODIPine Besylate 10 MG 1 tablet Orally Once a day Active Pantoprazole Sodium 40 MG TAKE 1 TABLET BY MOUTH EVERY DAY FOR 30 DAYS for 90 Active Immunizations Vaccine Route Administration Date Status Comme nts Flu vaccine no Preserv 3 and > Unknown 03/12/2014 Admin istered Influenza Unknown 04/07/2020 Administered Influenza Unknown 03/16/2022 Administered Influenza Unknown 03/21/2023 Administered Problems Problem Type SNOMED Code ICD Code Onset Dates Problem Status W/U Status Risk Notes Problem 032930671 Colon cancer screening (Z12.11) Active confirmed Problem Gastroesophageal reflux disease (074457814) Gastroesophageal reflux disease (K21.9) Active confirmed Problem 922580076 Irritable bowel syndrome with constipation (K58.1) Active confirmed Problem 09892870 Gastric intestin al metaplasia (K31.A0) Active confirmed Vital Signs Temperature 98.0 degrees Fahrenheit 02/14/2024 Blood pressure diastolic 00 mm Hg 02/14/2024 Height 62 in 02/14/2024 Blood pressure systolic 000 mm Hg 02/14/2024 Weight 187 lb 6 oz lbs 02/14/2024 BMI 34.27 kg/m2 02/14/2024 Encounters Encounter Location Date Provider Diagnosis [facility] [address] [place] [address] 02/14/2024 Tin Shaquille Miller Gastroesophageal reflux disease K21.9 and Gastric intestinal [...] be in 12 months. Plan Of Treatment Future Test Test Name Order Date COLONOSCOPY 12/08/2011 COLONOSCOPY 01/12/2017 UPPER GI ENDOSCOPY 06/08/2022 COLONOSCOPY 06/08/2022 UPPER GI ENDOSCOPY 12/28/2022 Next Appt Details Provider Name:Tin Carli awad Jr, 02/12/2025 09:40:00 AM, [address], [address], [place], [address], Insurance Providers Payer Name Payer Address Payer Phone Subscriber Number Group Number Insured Name Patient Relationship to Insured Coverage Start Date Coverage End Date MEDICARE OF [place] [address] [facility] [place] [address] [id number] LEEANNA MCNULTY Self - patient is the insured [facility] [employer] [address] [place], [place] [id number] [phone] [id number] LEEANNA MCNULTY Self - patient is the insured Medical (General) History Medical History History ICD Code EGD 02/18, gastric intestinal metaplasia along the lesser curvature of the antrum but not widespread. peptic ulcer disease hypertension bakers cyst Colonoscopy 06/20, negative for polyps, e xam was somewhat limited by prep. Surgical History Surgery Date(Month/Year) cholecystectomy
== END 2024-08-14 12:58 | disposition home or self-care (01) ==
LOC: HO.MAMMO 12:57
PROVIDERS: PCP Internal Medicine; Visit Provider Internal Medicine
DX: Z12.31 Encounter for screening mammogram for malignant neoplasm of breast (principal); Z13.820 Encounter for screening for osteoporosis; Z78.0 Asymptomatic menopausal state
CPT/HCPCS: 77063; 77067; 77080

== ENCOUNTER → 2024-08-14 13:30 | Outpatient (BNV) | payer MEDICARE, OTHER, SELFPAY | PROVIDERS: PCP Internal Medicine; Visit Provider Radiology Diagnostic Radiology | DX: E28.39 Other primary ovarian failure (principal) | CPT/HCPCS: 77080 ==

== ENCOUNTER 2024-10-28 10:44 | Outpatient (AMB) | payer MEDICARE, OTHER, SELFPAY ==
--- NOTE | 2024-10-28 10:20 | MHC.PC.OV ---
Vital Signs 10/28/24 10:47 Height 5 ft 3 in Weight 183 lb BMI 32.4 BP 134/86 Blood Pressure Location Rt brachial Position Sitting Pulse 67 Pulse Source Pulse Oximeter Temp 97.9 F Temp Source Axillary Pulse Oximetry (%) 98 Oxygen Delivery Method Room Air Intake Visit Reasons: HTN, Diverticulosis Slp Teacher Required: No Accompanied by: Self / Same As Patient Allergies No Known Allergies Allergy (Mild, Verified 10/28/24 10:49) NONE Tobacco use date assessed: 10/28/24 Fall risk assessment: No Falls in past year Last assessed Fall Risk: 10/28/24 Dental Screening Dental Screen Date: 10/28/24 Did you have a dental visit in the last 12 months?: Yes Did you have a dental problem in the last 6 months where you did not have access to dental care?: No [facility] Medical History (Updated 10/28/24 @ 11:26 by Dayo Rodríguez MD) Polyp of hepatic flexure of colon Bakers cyst HTN (hypertension) Peptic ulcer disease H. pylori infection Gastritis Surgical History H/O colonoscopy (~06/28/22) H/O endoscopy Hx of cholecystectomy History of Family History (Updated 10/28/24 @ 10:53 by Shara Gutierrez MA) Mother Arthritis Father No problems noted. Social History Housing: House Patient Tobacco Use Status: Never used Tobacco e-Cigarette/Vaping Use: Never Used service: No Current occupational status: retired Cognitive needs: No Hearing needs: No Vision needs: Yes (reading glasses) Questionnaire PHQ-9 Over the last 2 weeks, how often have you been bothered by any of the following problems? 1. Little interest or pleasure in doing things: not at all 2. Feeling down, depressed, or hopeless: not at all 3. Trouble falling or staying asleep, or sleeping too much: not at all 4. Feeling tired or having little energy: not at all 5. Poor appetite or overeating: not at all 6. Feeling bad about yourself - or that you are a failure or have let yourself or your family down: not at all 7. Trouble concentrating on things, such as reading the newspaper or watching television: not at all 8. Moving or speaking so slowly that other people could have noticed. Or the opposite - being so fidgety or restless that you have been moving around a lot more than usual: not at all 9. Thoughts that you would be better off or of hurting yourself in some way: not at all Total score: 0 Source: Developed by Drs. Unruly White, Phoebe Barragan, Hua Reyes and colleagues, with an educational tian from [employer]. Thrive Questionnaire Date Thrive assessed: 10/28/24 I am a: Patient Within the past 12 months, did the food you bought not last and you didn't have the money to get more?: Never true Within the past 12 months, did you worry whether your food would run out before you got money to buy more?: Never true Do you have trouble paying for medicines?: No Do you have trouble getting transportation to medical appointments?: No Do you have trouble paying your heating and electricity bill?: No Do you have trouble taking care of your child, family member or friend?: No Do you have trouble with day-to-day activities such as bathing, preparing meals, shopping, managing finances, etc.?: No Are you currently unemployed and looking for a job?: No Are you interested in more education?: No THRIVE Score: 0 AUDIT C Alcohol Use Questionnaire (AUDIT-C) 1. How often do you have a drink containing alcohol?: Never 3. How often do you have six or more drinks on one occasion?: Never Total Score: 0 CHUY-7 AMB Questionnaire CHUY-7 Date CHUY - 7 assessed: 10/28/24 Feeling nervous, anxious, or on edge: 0 = Not at all Not being able to stop or control worryin = Not at all Worrying too much about different things: 0 = Not at all Trouble relaxin = Not at all Being so restless that it is hard to sit still: 0 = Not at all Becoming easily annoyed or irritable: 0 = Not at all Feeling afraid as if something awful might happen: 0 = Not at all Total CHUY-7 score (0-4 normal; 5-9 mild; 10-14 moderate; 15-21 severe): 0 Source: Developed by Drs. Unruly White, Phoebe Barragan, Hua Reyes and colleagues, with an educational tian from [employer]. Physical exam (Primary Care) Vital Signs: Last Vital Signs Temp 97.9 F 10/28/24 10:47 Pulse 67 10/28/24 10:47 BP 134/86 10/28/24 10:47 Pulse Ox 98 10/28/24 10:47 Oxygen Delivery Method Room Air 10/28/24 10:47 BMI result Body Mass Index 32.4 Tobacco/Smoking Status: Tobacco use Status Tobacco use date assessed 10/28/24 10/28/24 10:22 Patient Tobacco Use Status Never used Tobacco 10/28/24 10:22 e-Cigarette/Vaping Use Never Used 10/28/24 10:22 PHQ-9: PHQ-9 Score PHQ-9: Total score 0 10/28/24 11:26 Thrive Assessment: Date of Thrive Assessment Date Thrive assessed 10/28/24 10/28/24 10:22 Coding Level of Care Code New Pt Level 4 (97941) Complex EM visit Add On G2211 Diagnoses HTN (hypertension) I10 Assessment & Plan Assessment & Plan (1) HTN (hypertension): Code(s): I10 - Essential (primary) hypertension Category: Medical Plan: Continue current medications. BP in range Plan History of Present Illness - The patient is a 74-year-old female presenting with follow-up for blood pressure management. - Has a well-documented history of essential hypertension on medication. - Describes herself as a worry type, possibly impacting blood pressure control. - Regular follow-up was planned for proper management. - Follow-up for osteoarthritis in the left knee. - History of osteoarthritis addressed with three reflex injections, resulting in improved mobility. - Recently capable of walking significant distances, indicating improvement after treatment. - Addressing left ear discomfort. - History of left ear discomfort with potential wax build-up identified previously. - Recent episode of ear pain following travel, which has been a recurrent issue. - She has used ear drops in the past. 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 - Exercises by walking and recently managed to walk two miles. - Participates actively in gardening, as reported during her recent visit to [place]. - Reviewed her recent gain of approximately four pounds, believed to be related to arthritis affecting activity levels. - Regularly visits a chiropractor every two weeks to manage stress. Review of Systems - Cardiovascular: Reports a longstanding history of hypertension. - Musculoskeletal: Reports arthritis-related issues in the left knee that have been addressed with injections. - Ears: Reports pain in the left ear and past issues with wax build-up. - Neurological/Psychiatric: Reports being a worry type impacting sleep and potentially affecting hypertension. - Sleep: Reports sleep disturbances, particularly before healthcare appointments due to worry. Physical Exam General: Cooperative and healthy appearing Nutritional Appearance: Well nourished Orientation/consciousness: Patient oriented x3 Limitations: No limitations Head: Normal to inspection General: Appearance normal, both eyes and all related structures Neck: Normal visual inspection Chest: Normal palpation of entire chest wall Respiratory: All good ormal respiratory effort Neurology: Patient oriented x3 Results - Labs: Blood work performed in June, deemed all good results. - Tests and diagnostics: Evaluation by orthopedics revealed a calcium deposit in the rotator cuff. Plan 1. Essential Hypertension - Continue current medication regimen and daily administration. - Incorporate stress management techniques to address anxiety-related blood pressure concerns. - Follow-up in three months to monitor blood pressure and medication effects. 2. Osteoarthritis Of The Left Knee - Maintain improvement with injections; continue walking exercises using supportive shoes. - Monitor symptoms and consider orthopedic follow-up if needed. 3. Rotator Cuff Tendinitis With Calcium Deposits - Continue observation; consider physical therapy if symptoms or physical limitations increase. 4. Obesity - Focus on weight management through dietary adjustment and regular exercise. - Monitor weight, and consider a dietitian referral if needed. 5. Ear Discomfort - Use ear drops to alleviate symptoms if necessary. Discussion Notes I discussed with the patient that her essential hypertension should be managed with continued medication adherence and stress management techniques to minimize anxiety's impact on blood pressure. We plan to follow up in three months for reassessment. For her osteoarthritis, improvement was noted following recent reflex injections, and maintenance of moderate physical activity using proper footwear was encouraged. Regarding her rotator cuff tendinitis, the orthopedic evaluation was reassuring, and we highlighted the need for physical therapy if discomfort persists. For obesity, ongoing management through lifestyle adjustments was emphasized, highlighting the potential benefits of weight monitoring and nutritional counseling. I reviewed the discomfort in her left ear, and suggested ear drops for symptom relief if issues arise. Follow-up was suggested every three months unless symptoms warrant earlier evaluation. Patient Instructions - Continue your blood pressure medications every day. - Try to manage stress to help with your blood pressure. - Walk regularly and wear supportive shoes like sneakers. - Consider physical therapy if shoulder discomfort increases. - Use ear drops if uncomfortable and revisit symptoms. - Follow up with me in three months, or earlier if you have new symptoms.
[2024-10-28 10:47] VITALS: BP 134/86; PULSE 67; TEMP 36.6; O2SAT 98; BMI 32.4
--- OUTSIDE RECORDS SUMMARY | 2024-10-28 11:49 | XMS_ITS | Patient Health Record ---
Author Organization [facility] Lindsey maryanne Anthony Address [address] [place] [address] Care Team Providers Care Sales Recruiting Coordinator Name Role Phone Dimitris Jacome MD Primary Care Provider Steven Dewey Unavailable [phone] Reason For Referral No Information Medications Medication [...] X ray : Foot, left 3V 11/02/2020 88773- Debride <25 sq cm 01/22/2014 85827 I&D ABSCESS- SIMPLE,SINGLE 014 Insurance Providers Payer Name Payer Address Payer Phone Subscriber Number Group Number Insured Name Patient Relationship to Insured Coverage Start Date Coverage End Date Medicare National [facility] [address] [place] [address] [id number] Maya Cruz Self - patient is the insured [employer] [address] [place] [address] [id number] [phone] NancyMaya Self - patient is the insured Medical (General) History Medical History History ICD Code Arthritis Hypertension Surgical History Surgery Date(Month/Year) section x 2
== END 2024-10-28 11:25 | disposition home or self-care (01) ==
LOC: HO.HMCHD 10:44
PROVIDERS: PCP Internal Medicine; Visit Provider Internal Medicine
DX: I10 Essential (primary) hypertension (principal)

== ENCOUNTER → 2024-10-28 10:44 | Outpatient (BNVA) | payer MEDICARE, OTHER, SELFPAY | PROVIDERS: PCP Internal Medicine; Visit Provider Internal Medicine | DX: I10 Essential (primary) hypertension (principal) | CPT/HCPCS: 99202 ==

== ENCOUNTER 2025-02-03 09:07 | Outpatient (AMB) | payer MEDICARE, OTHER, SELFPAY ==
--- OUTSIDE RECORDS SUMMARY | 2025-01-02 09:15 | XMS_ITS ---
Author Organization [facility] Address [address] [facility] [address] [place] [address] Care Team Providers Care Adjunct Sociology Professor Name Role Phone LYNNETTE REID Primary Care Provider Tin Santana Jr REASON FOR VISIT gerd Encounters Encounter Location Date Provider Diagnosis [facility] [address] [facility] [address] [place] [address] 01/02/2025 Tin Corbin Jr Plan Of Treatment Next Appt Details Provider Name:Tin awad Jr, 01/14/2026 09:20:00 AM, [address] [facility], [address], [place], [address], Progress Notes * LEEANNA MCNULTYDOB:1950 (75 yo F)Acc No.[id number]:01/02/2025 Progress Notes Patient: LEEANNA DUARTE Provider: Laurel Corbin MD :1950 A ge:74 Y S ex:Female Date:01/02/2025 Address:[address] [place] [address] Pcp:LYNNETTE REID Subjective: * Chief Complaints: * [...] 0 01/02/2025 Generated for Flex lynn/Niraj/Che on: 0 02/03/2025 10:14 AM EDT
--- NOTE | 2025-02-03 09:08 | A.OFFPC_ITS ---
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 She reported that her blood pressure was elevated, which she links to heightened anxiety following an upsetting incident with her son, who is a psychologist. Her son resides in [place] and did not contact her, which was distressing due to her concerns over her grandson's incurable disease. She acknowledges that emotional distress significantly affects her blood pressure levels. During a prior visit in October, her blood pressure was well- controlled, indicating fluctuations associated with stress. For her anxiety, she does not favor daily medications and has previously used lorazepam (Ativan) occasionally over the past few years for acute anxiety episodes. She is resistant to starting any continuous medication for anxiety, preferring instead to manage episodes as they arise. She expressed concerns about dependence on medications like Ativan. The patient also mentioned chronic constipation, for which she uses prunes and occasionally MiraLax, both of which provide relief. For hypercholesterolemia, her last recorded LDL was 98 mg/dL, and the overall cholesterol was 180 mg/dL, somewhat higher than optimal levels. Medical History: - Essential Hypertension - Anxiety - Constipation - Hypercholesterolemia Medications: - Lorazepam (Ativan) as needed for anxie ty, previously used (dosage unspecified) - Prunes for constipation - MiraLax occasionally for constipation Family History: - Son is a psychologist - Grandson with incurable disease Social: - with housing unspecified - Distress over lack of communication wi th son - Concerns for grandson with an incurabl e disease - Enjoys baking, contributing to dietary intake of sugars [facility] Medical History (Updated 02/03/25 @ 09:35 by Arden Grant MD) Hyperlipidemia CHUY (generalized anxiety disorder) Polyp of hepatic flexure of colon Bakers cyst HTN (hypertension) Peptic ulcer disease H. pylori infection Gastritis Surgical History H/O colonoscopy (~06/28/22) H/O endoscopy Hx of cholecystectomy History of Family History (Updated 10/28/24 @ 10:53 by Shara Gutierrez MA) Mother Arthritis Father No problems noted. Social History Housing: House Patient Tobacco Use Status: Never used Tobacco e-Cigarette/Vaping Use: Never Used service: No Current occupational status: retired Cognitive needs: No Hearing needs: No Vision needs: Yes (reading glasses) Questionnaire Thrive Questionnaire Date Thrive assessed: 10/28/24 AUDIT C Alcohol Use Questionnaire (AUDIT-C) 1. How often do you have a drink containing alcohol?: Never 3. How often do you have six or more drinks on one occasion?: Never Total Score: 0 CHUY-7 AMB Questionnaire CHUY-7 Date CHUY - 7 assessed: 10/28/24 Source: Developed by Drs. Unruly White, Phoebe Barragan, Hua Reyes and colleagues, with an educational tian from [email or web address]. Review of Systems Const Details: - Cardiovascular: Reports elevated blood pressure - Gastrointestinal: Reports constipation; denies nausea, vomiting; reports occasional abdominal pain; denies changes in bowel habits beyond constipation - Neurological: Reports headaches - Psychological: Reports anxiety related to family concerns All systems reviewed & are unremarkable except as noted in HPI and below Physical exam (Primary Care) Vital Signs: Last Vital Signs Temp 98.3 F 02/03/25 09:13 Pulse 63 02/03/25 09:13 Resp 17 02/03/25 09:13 BP 158/88 H 02/03/25 09:13 Pulse Ox 99 02/03/25 09:13 Oxygen Delivery Method Room Air 02/03/25 09:13 BMI result Body Mass Index 32.6 Tobacco/Smoking Status: Tobacco use Status Tobacco use date assessed 10/28/24 02/03/25 09:11 Patient Tobacco Use Status Never used Tobacco 02/03/25 09:11 e-Cigarette/Vaping Use Never Used 02/03/25 09:11 Thrive Assessment: Date of Thrive Assessment Date Thrive assessed 10/28/24 02/03/25 09:11 Const Other: General: Alert and oriented, Well nourished, No acute distress. Eye: Pupils are equal, round and reactive to light, Intact accommodation, Extraocular movements are intact, Normal conjunctiva, Vision unchanged, Puffy eyes noted. HENT: Normocephalic, Atraumatic, Tympanic membranes are clear, Normal hearing, Oral mucosa is moist, No pharyngeal erythema, Ear canals patent. Respiratory: Lungs CTA bilaterally, No wheeze, Respirations are non-labored. Cardiovascular: Regular rate, Regular rhythm, S1 auscultated, S2 auscultated, No murmur, Good pulses equal in all extremities, Normal peripheral perfusion, No edema. Gastrointestinal: Soft, Non-tender, Non-distended, Normal bowel sounds, No organomegaly, Occasional constipation reported. Musculoskeletal: Normal range of motion, Normal strength, No tenderness, No swelling, No deformity, Normal gait. Integumentary: Warm, Dry, [place], Intact. Neurologic: Alert, Oriented, Normal sensory, Normal motor function, No focal defects, Cranial Nerves II-XII are grossly intact, Normal deep tendon reflexes. Psychiatric: Cooperative, Appropriate mood & affect, Normal judgment, Reports anxiety and stress. Coding Level of Care Code Est Pt Level 4 (07601) Complex EM visit Add On G2211 Diagnoses Hypertension, unspecified type I10 Hypertension type: unspecified CHUY (generalized anxiety disorder) F41.1 Hyperlipidemia, unspecified hyperlipidemia type E78.5 Hyperlipidemia type: unspecified Constipation, unspecified constipation type K59.00 Constipation type: unspecified constipation type Assessment & Plan Assessment & Plan (1) HTN (hypertension): Comment: - Encouraged home monitoring of blood pressure for eights weeks given elavated pressures today. - Recommended reducing sodium intake and weight management strategies - If home pressures elevated will increase their dose Code(s): I10 - Essential (primary) hypertension Category: Medical Qualifiers: Hypertension type: unspecified Qualified Code(s): I10 - Essential (primary) hypertension (2) CHUY (generalized anxiety disorder): Comment: - Discussed non-daily medication options; patient's preference to minimize medication intake acknowledged - Emphasized lifestyle modifications for stress reduction - Offered SSRI, but patient refused Code(s): F41.1 - Generalized anxiety disorder Category: Medical (3) Hyperlipidemia: Comment: - Proposed modification of diet to reduce saturated fat intake - Increasing physical activity as a method to manage cholesterol levels Code(s): E78.5 - Hyperlipidemia, unspecified Category: Medical Qualifiers: Hyperlipidemia type: unspecified Qualified Code(s): E78.5 - Hyperlipidemia, unspecified (4) Constipation: Code(s): K59.00 - Constipation, unspecified Qualifiers: Constipation type: unspecified constipation type Qualified Code(s): K59.00 - Constipation, unspecified Plan: - Proposed modification of diet to reduce saturated fat intake - Increasing physical activity as a method to manage cholesterol levels Plan During the visit, the patient and I discussed her blood pressure and anxiety concerns in detail. We reviewed the importance of home monitoring her blood pressure and noted her elevated readings were likely stress-related. The risks and benefits of starting an anxiolytic such as duloxetine were examined, but she declined this suggestion. We agreed on recording her blood pressure readings over six weeks and re-evaluating her need for medication adjustments. We also talked about dietary steps to lower cholesterol and the importance of maintaining a low-sodium diet to help manage her blood pressure. We discussed the upcoming blood work for her thyroid function and diabetes screening. I emphasized adopting stress-relief strategies and highlighted the significance of consistent sleep patterns to address her heightened stress and related symptoms. We outlined the plan and arranged for a follow-up visit in two months. Orders: Orders Hemoglobin A1c Today E78.5 - Hyperlipidemia, unspecified, I10 - Essential (primary) hypertension TSH reflex Free T4 Today E78.5 - Hyperlipidemia, unspecified, I10 - Essential (primary) hypertension Lipid Panel Today E78.5 - Hyperlipidemia, unspecified, I10 - Essential (primary) hypertension Patient Instructions: - Monitor blood pressure at least every other day at home. Record readings to bring to the next appointment. - Limit salt intake and endeavor to lose weight where possible for better blood pressure control. - Continue to manage constipation with prunes and MiraLax as needed; remember to stay hydrated. - Follow dietary guidance to reduce saturated fat intake to help manage cholesterol. - Consider lifestyle changes and stress-relief activities to manage anxiety symptoms. - Attend upcoming blood work appointment without fasting as discussed.
[2025-02-03 09:13] VITALS: BP 158/88; PULSE 63; RESP 17; TEMP 36.8; O2SAT 99; BMI 32.6
--- OUTSIDE RECORDS SUMMARY | 2025-02-03 10:15 | XMS_ITS | Patient Health Record ---
Author Organization [facility] Lindsey maryanne Anthony Address [address] [place] [address] Care Team Providers Care Regional Owner Operator Truck Driver Name Role Phone Dimitris Jacome MD Primary Care Provider Steven Dewey Unavailable [phone] Reason For Referral No Information Medications Medication SIG (Take, Route, Frequency, Duration) Notes Start Date End Date Status Corgard Not-Taking Nadolol 40 MG TAKE 1 TABLET BY MILAGRO EVERY DAY Oral; Duration: 90 Active amLODIPine Besylate 10 MG Orally [...] X ray : Foot, left 3V 11/02/2020 04930- Debride <25 sq cm 01/22/2014 19298 I&D ABSCESS- SIMPLE,SINGLE 014 Insurance Providers Payer Name Payer Address Payer Phone Subscriber Number Group Number Insured Name Patient Relationship to Insured Coverage Start Date Coverage End Date Medicare National Govt [facility] [address] [place] [address] [id number] Maya Cruz Self - patient is the insured [employer] [address] [place] [address] [id number] Maya Cruz Self - patient is the insured Medical (General) History Medical History History ICD Code Arthritis Hypertension Surgical History Surgery Date(Month/Year) section x 2
--- OUTSIDE RECORDS SUMMARY | 2025-02-03 10:15 | XMS_ITS | Patient Health Record ---
Author Organization [facility] Address [address] [place] [address] Care Team Providers Care Marketing Data Specialist Name Role Phone LYNNETTE REID Primary Care Provider Tin Santana Jr Unavailable [phone] Allergies No Known Allergies Reason For Referral [...] Unknown 03/16/2022 Administered Influenza Unknown 03/21/2023 Administered Social History Tobacco Use: Social History Observation Description Date Details (start date - stop date) Never Smoker NA - NA Tobacco Control (Standard) Question Answer Notes Tobacco use: Nonsmoker AUDIT-C (Standard) Question Answer Notes Did you have a drink containing alcohol in the p ast year? No Points 0 Interpretation Negative Problems Problem Type SNOMED Code ICD Code Onset Dates Problem Status W/U Status Risk Notes Problem 552994564 Colon cancer screening (Z12.11) Active confirmed Problem Gastroesophageal reflux disease (374208237) Gastroesophageal reflux disease (K21.9) Active confirmed Problem 787996789 Irritable bowel syndrome with constipation (K58.1) Active confirmed Problem 75907990 Gastric intestin al metaplasia (K31.A0) Active confirmed Vital Signs Heart Rate 84 /min 01/13/2025 Temperature 97.5 degrees Fahrenheit 01/13/2025 Blood pressure diastolic 01 mm Hg 01/13/2025 Height 62 in 01/13/2025 Blood pressure systolic 001 mm Hg 01/13/2025 Weight 182.6 lbs 01/13/2025 BMI 33.39 kg/m2 01/13/2025 Encounters Encounter Location Date Provider Diagnosis [facility] [address] [place] [address] 02/14/2024 Tin Corbin Jr Gastroesophageal reflux disease K21.9 and Gastric intestinal metaplasia K31.A0 [facility] [address] [place] [address] 01/13/2025 Tin Shaquille Miller Gastroesophageal reflux disease K21.9 ; Gastric intestinal metaplasia K31.A0 and Irritable bowel syndrome with constipation K58.1 Assessments Encounter Date Diagnosis (ICD Code) Assessment [...] reflux. Followup will be in 12 months. 01/13/2025 Gastroesophageal reflux disease (ICD-10 - K21.9) Leeanna is doing well. Her symptoms of reflux under good control currently. She will continue her present regimen. We discussed diet, lifestyle modifications, and weight management regarding the treatment of reflux. We will see her in follow-up in 1 year. IBS symptoms are under good control as well. She will follow a high-fiber diet. She will call if she has problems. 01/13/2025 Gastric intestinal metaplasia (ICD-10 - K31.A0) Leeanna is doing well. Her symptoms of reflux under good control currently. She will continue her present regimen. We discussed diet, lifestyle modifications, and weight management regarding the treatment of reflux. We will see her in follow-up in 1 year. IBS symptoms are under good control as well. She will follow a high-fiber diet. She will call if she has problems. 01/13/2025 Irritable bowel syndrome with constipation (ICD-10 - K58.1) Leeanna is doing well. Her symptoms of reflux under good control currently. She will continue her present regimen. We discussed diet, lifestyle modifications, and weight management regarding the treatment of reflux. We will see her in follow-up in 1 year. IBS symptoms are under good control as well. She will follow a high-fiber diet. She will call if she has problems. Plan Of Treatment Future Test Test Name Order Date COLONOSCOPY 12/08/2011 COLONOSCOPY 01/12/2017 UPPER GI ENDOSCOPY 06/08/2022 COLONOSCOPY 06/08/2022 UPPER GI ENDOSCOPY 12/28/2022 Next Appt Details Provider Name:Tin Carli awad , 01/14/2026 09:20:00 AM, [address] [place] [address], [address], [place], [address], Insurance Providers Payer Name Payer Address Payer Phone Subscriber Number Group Number Insured Name Patient Relationship to Insured Coverage Start Date Coverage End Date [place] OF [place] [address] [place] [address] [id number] LEEANNA MCNULTY Self - patient is the insured [facility] [address] [place], [place] [phone] [id number] LEEANNA MCNULTY Self - patient is the insured Medical (General) History Medical History History ICD Code EGD 02/18, gastric intestinal metaplasia along the lesser curvature of the antrum but not widespread. peptic ulcer disease hypertension bakers cyst Colonoscopy 06/20, negative for polyps, e xam was somewhat limited by prep. Surgical History Surgery Date(Month/Year) cholecystectomy
--- OUTSIDE RECORDS SUMMARY | 2025-02-03 10:15 | XMS_ITS | Patient Health Record ---
Author Organization [facility] Address [address] [place] [address] Care Team Providers Care Project Consultant Name Role Phone Nikole Simpson Unavailable [phone] Reason For Referral No Information Medications Medication SIG (Take, Route, Fr equency, Duration) Notes Start Date End Date Status Fosamax 70MG 1 ORAL EVERY WEEK; Duration: -3 Christiano-MJ 06/05 Active Calcium 1 ORAL daily; Duration: -3 Christiano-MJ 02/12/2013 Active Nadolol 1 ORAL daily; Duration: -3 Christiano-MJ 02/12/2013 Active Magnesium ORAL; Duration: -3 Christiano-MJ 02/12/2013 Active amLODIPine Besylate 1 ORAL daily; Duration: -3 Christiano-MJ Active Problems Problem Type SNOMED Code ICD Code Onset Dates Problem Status W/U Status Risk Notes Problem Sarcoidosis (26094384) Sarcoidosis (135) Active confirmed Major Problem Benign essential hypertension (3284463) Essential hypertension, benign (401.1) Active confirmed Major Problem Urinary tract infectious disease (disorder) (14111931) Urinary tract infection, site not specified (599.0) Active confirmed Diag Problem Menopausal symptom (01940556) Symptomatic menopausal or female climacteric states (627.2) Active confirmed Major Problem Osteoporosis (44246643) Unspecified osteoporosis (733.00) Active confirmed Diag Problem Gynecological examination normal (401777590840391) Routine gynecological examination (V72.31) Active confirmed Major Problem Screening for malignant neoplasm of colon (260199377) Special screening for malignant neoplasms, colon (V76.51) Active confirmed Major Plan Of Treatment No Information Insurance Providers Payer Name Payer Address Payer Phone Subscriber Number Group Number Insured Name Patient Relationship to Insured Coverage Start Date Coverage End Date MEDICARE [address] [facility] [place] [id number] LEEANNA MCNULTY Self - patient is the insured [facility] [id number] [place] [id number] LEEANNA MCNULTY Self - patient is the insured
== END 2025-02-03 09:47 | disposition home or self-care (01) ==
LOC: HO.HMCHD 09:07
PROVIDERS: PCP Student in an Organized Health Care Education/Training Program; Visit Provider Student in an Organized Health Care Education/Training Program
DX: I10 Essential (primary) hypertension (principal); F41.1 Generalized anxiety disorder; E78.5 Hyperlipidemia, unspecified; K59.00 Constipation, unspecified

== ENCOUNTER 2025-02-03 10:06 | Outpatient (REF) | payer MEDICARE, OTHER, SELFPAY ==
[2025-02-03 13:08] LABS: Hemoglobin A1C 125.3562 umol/L; Total Hemoglobin (HGBA1C) 3489.6646 umol/L
[2025-02-03 13:50] LABS: Cholesterol 178 mg/dL (<200); HDL Cholesterol 41 mg/dL (>40); Triglycerides 102 mg/dL (<150)
== END 2025-02-03 10:07 | disposition home or self-care (01) ==
LOC: HO.10HDL 10:06
PROVIDERS: Visit Provider Student in an Organized Health Care Education/Training Program
DX: Z13.1 Encounter for screening for diabetes mellitus (principal); I10 Essential (primary) hypertension; E78.5 Hyperlipidemia, unspecified; F41.1 Generalized anxiety disorder; K59.00 Constipation, unspecified
CPT/HCPCS: 36415; 80061; 83036; 84443; 99212

== ENCOUNTER 2025-04-04 10:36 | Outpatient (AMB) | payer MEDICARE, OTHER, SELFPAY ==
--- OUTSIDE RECORDS SUMMARY | 2025-01-02 08:15 | XMS_ITS ---
Author Organization [facility] Address [address] [place] [address] Care Team Providers Care Cream Hauler Name Role Phone LYNNETTE REID Primary Care Provider Tin Santana Jr REASON FOR VISIT gerd Encounters Encounter Location Date Provider Diagnosis [facility] [address] [place] [address] 01/02/2025 Tin Corbin Jr Plan Of Treatment Next Appt Details Provider Name:Tin awad Jr, 01/14/2026 09:20:00 AM, [address], [address], [place], [address], Progress Notes * LEEANNA MCNULTYDOB:1950 (75 yo F)Acc No.[id number]:01/02/2025 Progress Notes Patient: LEEANNA DUARTE Provider: Laurel Corbin MD :1950 A ge:74 Y S ex:Female Date:01/02/2025 Address:[address] [place] [address] Pcp:LYNNETTE REID Subjective: * Chief Complaints: * 1 . Gerd. * Medical History: Objective: * Vitals: Assessment: Plan: * Treatment: * * The named appointment provid er may or may not be the originator of this progress note, and it is not deemed complete until electronically signed by the appointment provider. Sign off status: Pending * Provider: Laurel Corbin MD Date: 0 01/02/2025 Generated for Flex lynn/Niraj/Che on: 1 06/04/2024 12:31 PM EST
--- OUTSIDE RECORDS SUMMARY | 2025-02-12 04:40 | XMS_ITS ---
Author Organization [facility] Address [address] [place] [address] Care Team Providers Care Manager Mortgage Name Role Phone LYNNETTE REID Primary Care Provider Tin Santana Jr REASON FOR VISIT gerd Encounters Encounter Location Date Provider Diagnosis [facility] [address] [place] [address] 02/12/2025 Tin Corbin Jr Plan Of Treatment Next Appt Details Provider Name:Tin awad Jr, 01/14/2026 09:20:00 AM, [address], [address], [place], [address], Progress Notes * LEEANNA MCNULTYDOB:1950 (75 yo F)Acc No.[id number]:02/12/2025 Progress Notes Patient: LEEANNA DUARTE Provider: Laurel Corbin MD :1950 A ge:75 Y S ex:Female Date:02/12/2025 Address:[address] [place] [address] Pcp:LYNNETTE REID Subjective: * Chief Complaints: * 1 . Gerd. * Medical History: Objective: * Vitals: Assessment: Plan: * Treatment: * * The named appointment provid er may or may not be the originator of this progress note, and it is not deemed complete until electronically signed by the appointment provider. Sign off status: Pending * Provider: Laurel Corbin MD Date: 0 02/12/2025 Generated for Flex lynn/Niraj/Che on: 1 06/04/2024 12:31 PM EST
--- NOTE | 2025-04-04 09:36 | MHC.PC.OV ---
Vital Signs 04/04/25 10:55 Height 5 ft 3 in Weight 185 lb BMI 32.8 BP 143/95 H Blood Pressure Location Rt brachial Position Sitting Pulse 68 Pulse Source Pulse Oximeter Temp 98.9 F Temp Source Temporal Artery Scan Pulse Oximetry (%) 96 Oxygen Delivery Method Room Air Intake Visit Reasons: 2 month f/u Power Shear Operator Required: No Accompanied by: Self / Same As Patient Allergies No Known Allergies Allergy (Mild, Verified 04/04/25 10:57) NONE Medication List - Last Reconciled 04/04/25 by Arden Grant MD amlodipine 10 mg PO DAILY cholecalciferol (vitamin D3) 125 mcg PO DAILY nadolol 40 mg PO DAILY 30 days pantoprazole 1 tab PO DAILY Tobacco use date assessed: 04/04/25 Fall risk assessment: No Falls in past year Last assessed Fall Risk: 04/04/25 Dental Screening Dental Screen Date: 04/04/25 Did you have a dental visit in the last 12 months?: Yes Did you have a dental problem in the last 6 months where you did not have access to dental care?: No HPI HPI Comments History of Present Illness Details The patient is a 75-year-old female presenting for management of chronic conditions and discussion of sleep issues. She reports difficulty sleeping at times, particularly when her mind is active. She has been using zolpidem very sparingly from a [id number] prescription but was denied a refill. The patient has a history of hypertension and notes that her blood pressure increases when she worries. Her home blood pressure readings are typically in the 120s and 130s, though she had one reading of 152. She is not fully adherent with her blood pressure medications, nadolol 40 mg and amlodipine 10 mg. She also has a history of high cholesterol but has previously refused medication, expressing a desire to manage it by working out after recently joining a gym. For gastrointestinal health, the patient reports some trouble with constipation, which she manages by taking prunes daily and occasionally using senna. She reports evening swelling in her hand, which she thought was a ganglion cyst from a fall in her 20s, but was informed it is likely related to age-related changes in her blood vessels. She has osteoarthritis of the left knee and recently received her third Euflexxa injection for the condition. Medical History: - Hypertension - Hyperlipidemia - Insomnia - Anxiety - Constipation - Osteoarthritis of the left knee, treated with Euflexxa injections - Peripheral edema - History of a fall in her 20s Medications: - Zolpidem, taken sparingly for insomnia - Nadolol 40 mg for hypertension - Amlodipine 10 mg for hypertension - Pantoprazole for acid reflux - Prunes for constipation - Senna, taken as needed for constipation - Euflexxa injections for left knee osteoarthritis Diagnostic Results: - Home Blood Pressure Monitoring: Readings are in the 120s and 130s, with one reading of 152. - Mammogram: Up to date, findings were good. - Colonoscopy: Up to date. Social History: - Exercise: The patient joined a gym last week and plans to work out. [facility] Medical History (Updated 04/04/25 @ 11:44 by Arden Grant MD) Osteoarthritis of left knee Peripheral edema Constipation Insomnia Hyperlipidemia CHUY (generalized anxiety disorder) Polyp of hepatic flexure of colon Bakers cyst HTN (hypertension) Peptic ulcer disease H. pylori infection Gastritis Surgical History H/O colonoscopy (~06/28/22) H/O endoscopy Hx of cholecystectomy History of Family History (Updated 04/04/25 @ 10:58 by Shara Gutierrez MA) Mother Arthritis Father No problems noted. Social History Housing: House Patient Tobacco Use Status: Never used Tobacco e-Cigarette/Vaping Use: Never Used service: No Current occupational status: retired Cognitive needs: No Hearing needs: No Vision needs: Yes (reading glasses) Questionnaire PHQ-9 Over the last 2 weeks, how often have you been bothered by any of the following problems? 1. Little interest or pleasure in doing things: not at all 2. Feeling down, depressed, or hopeless: not at all 3. Trouble falling or staying asleep, or sleeping too much: not at all 4. Feeling tired or having little energy: not at all 5. Poor appetite or overeating: not at all 6. Feeling bad about yourself - or that you are a failure or have let yourself or your family down: not at all 7. Trouble concentrating on things, such as reading the newspaper or watching television: not at all 8. Moving or speaking so slowly that other people could have noticed. Or the opposite - being so fidgety or restless that you have been moving around a lot more than usual: not at all 9. Thoughts that you would be better off or of hurting yourself in some way: not at all Total score: 0 Source: Developed by Drs. Unruly White, Hua Schultz and colleagues, with an educational tian from [employer]. Thrive Questionnaire Date Thrive assessed: 04/04/25 I am a: Patient Within the past 12 months, did the food you bought not last and you didn't have the money to get more?: Never true Within the past 12 months, did you worry whether your food would run out before you got money to buy more?: Never true Do you have trouble paying for medicines?: No Do you have trouble getting transportation to medical appointments?: No Do you have trouble paying your heating and electricity bill?: No Do you have trouble taking care of your child, family member or friend?: No Do you have trouble with day-to-day activities such as bathing, preparing meals, shopping, managing finances, etc.?: No Are you currently unemployed and looking for a job?: No Are you interested in more education?: No THRIVE Score: 0 AUDIT C Alcohol Use Questionnaire (AUDIT-C) 1. How often do you have a drink containing alcohol?: Never 3. How often do you have six or more drinks on one occasion?: Never Total Score: 0 CHUY-7 AMB Questionnaire CHUY-7 Date CHUY - 7 assessed: 04/04/25 Feeling nervous, anxious, or on edge: 0 = Not at all Not being able to stop or control worryin = Not at all Worrying too much about different things: 0 = Not at all Trouble relaxin = Not at all Being so restless that it is hard to sit still: 0 = Not at all Becoming easily annoyed or irritable: 0 = Not at all Feeling afraid as if something awful might happen: 0 = Not at all Total CHUY-7 score (0-4 normal; 5-9 mild; 10-14 moderate; 15-21 severe): 0 Source: Developed by Drs. Unruly White, Hua Schultz and colleagues, with an educational tian from [employer]. Review of Systems Narrative - Constitutional: Generally feels okay. - Cardiovascular: Reports elevated blood pressure when worried. - Gastrointestinal: Reports occasional constipation. - Musculoskeletal: Reports trouble with her left knee. - Integumentary/Vascular: Reports swelling in her hand/wrist area toward the evening. - Neurological: Reports difficulty sleeping. - Psychiatric: Reports feeling very sensitive and worries, which affects her blood pressure. All systems reviewed & are unremarkable except as reviewed in HPI and above Physical exam (Primary Care) Vital Signs: Last Vital Signs Temp 98.9 F 04/04/25 10:55 Pulse 68 04/04/25 10:55 BP 143/95 H 04/04/25 10:55 Pulse Ox 96 04/04/25 10:55 Oxygen Delivery Method Room Air 04/04/25 10:55 BMI result Body Mass Index 32.8 Tobacco/Smoking Status: Tobacco use Status Tobacco use date assessed 04/04/25 04/04/25 11:01 Patient Tobacco Use Status Never used Tobacco 04/04/25 09:37 e-Cigarette/Vaping Use Never Used 04/04/25 09:37 PHQ-9: PHQ-9 Score PHQ-9: Total score 0 04/04/25 11:01 Thrive Assessment: Date of Thrive Assessment Date Thrive assessed 04/04/25 04/04/25 11:01 Narrative General: Alert and oriented, Well nourished, No acute distress. Eye: Pupils are equal, round and reactive to light, Intact accommodation, Extraocular movements are intact, Normal conjunctiva, Vision unchanged. HENT: Normocephalic, Atraumatic, Tympanic membranes are clear, Normal hearing, Oral mucosa is moist, No pharyngeal erythema, Ear canals patent. Respiratory: Lungs CTA bilaterally, No wheeze, Respirations are non-labored. Cardiovascular: Regular rate, Regular rhythm, S1 auscultated, S2 auscultated, No murmur, Good pulses equal in all extremities, Normal peripheral perfusion, No edema. Gastrointestinal: Soft, Non-tender, Non-distended, Normal bowel sounds, No organomegaly. Musculoskeletal: Normal range of motion, Normal strength, No tenderness, No swelling, No deformity, Normal gait. Integumentary: Warm, Dry, [place], Intact. Neurologic: Alert, Oriented, Normal sensory, Normal motor function, No focal defects, Cranial Nerves II-XII are grossly intact, Normal deep tendon reflexes. Psychiatric: Cooperative, Appropriate mood & affect, Normal judgment. Coding Level of Care Code Est Pt Level 4 (76106) Complex EM visit Add On G2211 Diagnoses Other insomnia G47.09 Insomnia type: other insomnia CHUY (generalized anxiety disorder) F41.1 Hypertension, unspecified type I10 Hypertension type: unspecified Hyperlipidemia, unspecified hyperlipidemia type E78.5 Hyperlipidemia type: unspecified Constipation, unspecified constipation type K59.00 Constipation type: unspecified constipation type Peripheral edema R60.9 Osteoarthritis of left knee, unspecified osteoarthritis type M17.12 Osteoarthritis type: unspecified Assessment & Plan Assessment & Plan (1) Insomnia: Comment: - The patient reports intermittent insomnia, often associated with an active mind. - She requested a refill of zolpidem, which was denied due to significant side effects, including the risk of falls, confusion, and dementia. - Counseling was provided on the avoidance of tranquilizers for as-needed use Code(s): G47.00 - Insomnia, unspecified Category: Medical Qualifiers: Insomnia type: other insomnia Qualified Code(s): G47.09 - Other insomnia (2) CHUY (generalized anxiety disorder): Comment: - Endorses continued anxiety - An alternative, buspirone 5 mg twice daily, was offered for underlying anxiety. - The patient has deferred the decision and will research the medication. Code(s): F41.1 - Generalized anxiety disorder Category: Medical (3) HTN (hypertension): Comment: - Blood pressure is elevated in the context of anxiety. - Home readings are variable but mostly in the 130s. - The plan is to continue the current regimen of nadolol 40 mg and amlodipine 10 mg. - The patient was advised to continue routine blood pressure monitoring. Code(s): I10 - Essential (primary) hypertension Category: Medical Qualifiers: Hypertension type: unspecified Qualified Code(s): I10 - Essential (primary) hypertension (4) Hyperlipidemia: Comment: - The patient continues to decline pharmacotherapy. - She has recently joined a gym and will attempt management with lifestyle changes, including exercise. - This approach is acceptable at this time. Code(s): E78.5 - Hyperlipidemia, unspecified Category: Medical Qualifiers: Hyperlipidemia type: unspecified Qualified Code(s): E78.5 - Hyperlipidemia, unspecified (5) Constipation: Comment: - The patient reports using prunes and senna with insufficient relief. - She has been advised to start taking MiraLax one scoop daily, with the option to increase to twice daily if needed, to achieve regular bowel movements. Code(s): K59.00 - Constipation, unspecified Category: Medical Qualifiers: Constipation type: unspecified constipation type Qualified Code(s): K59.00 - Constipation, unspecified (6) Peripheral edema: Comment: - The swelling in her extremities is attributed to age-related venous insufficiency. - The patient was educated on wearing compression stockings daily and elevating her legs while sitting. Code(s): R60.9 - Edema, unspecified Category: Medical (7) Osteoarthritis of left knee: Comment: - The patient is being treated with Euflexxa injections, which is appropriate. - No change in management is required at this time. Code(s): M17.12 - Unilateral primary osteoarthritis, left knee Category: Medical Qualifiers: Osteoarthritis type: unspecified Qualified Code(s): M17.12 - Unilateral primary osteoarthritis, left knee Plan: Health Maintenance: - Vaccinations: Advised to get the flu and COVID-19 shots at a pharmacy. - Screenings: Mammogram and colonoscopy are up to date with good results. - Lifestyle: Encouraged to continue her exercise regimen at the gym. - Follow-up: Scheduled for a return visit in four months for a physical exam. Patient was informed and verbally consented to the use of an ambient scribe for clinic note documentation during this visit. Plan I had a detailed discussion with the patient regarding her request for zolpidem for insomnia. I explained that we have a strict policy against prescribing this class of medication due to the significant risks in older adults, including falls, fractures, confusion, and dementia. I offered buspirone as a safer, non-tranquilizer alternative to treat potential underlying anxiety that may be contributing to her insomnia, to be taken daily rather than as needed. The patient understood and will research the medication before making a decision. We reviewed her other chronic conditions. We will continue her current medications for hypertension, and she will continue to monitor her pressures at home. I explained that her evening extremity swelling is related to age-related vessel changes and advised daily compression stockings and leg elevation. For constipation, I recommended daily MiraLax instead of senna. I also encouraged her to get her flu and COVID-19 vaccinations and to follow up in four months. Patient Instructions: - Do not take Zolpidem (Ambien) for sleep due to risks of falling and confusion. - You were offered a medicine called buspirone to help with worry and sleep, which you can read about and decide on later. - Continue taking nadolol and amlodipine for your blood pressure. - Check your blood pressure regularly at home. - For constipation, take one scoop of MiraLax powder mixed in a drink every day. - For swelling in your legs, wear compression stockings every day when you are walking around, and put your feet up on a stool when you are sitting. - Please go to a pharmacy to get your flu shot and COVID-19 shot. - Continue to stay active and eat healthy. - Please return for a follow-up visit in four months.
[2025-04-04 10:55] VITALS: BP 143/95; PULSE 68; TEMP 37.2; O2SAT 96; BMI 32.8
--- OUTSIDE RECORDS SUMMARY | 2025-04-04 12:32 | XMS_ITS | Patient Health Record ---
Author Organization [facility] Address [address] [place] [address] Care Team Providers Care Vascular Technologist Sonographer Name Role Phone Dimitris Jacome MD Primary Care Provider Unavaila Steven Trinidad Unavailable [phone] Reason For Referral No Information Medications Medication SIG (Take, Route, Frequency, Duration) Notes Start Date End Date Status Corgard Not-Taking Nadolol 40 MG TAKE 1 TABLET BY EVERY DAY Oral; Duration: 90 Active amLODIPine [...] X ray : Foot, left 3V 11/02/2020 13495- Debride <25 sq cm 01/22/2014 [id number] I&D ABSCESS- SIMPLE,SINGLE 014 Insurance Providers Payer Name Payer Address Payer Phone Subscriber Number Group Number Insured Name Patient Relationship to Insured Coverage Start Date Coverage End Date Medicare National [facility] [address] [place] [address] [id number] Maya Cruz Self - patient is the insured [employer] [address] [place] [address] [id number] [phone] Maya Cruz Self - patient is the insured Medical (General) History Medical History History ICD Code Arthritis Hypertension Surgical History Surgery Date(Month/Year) section x 2
--- OUTSIDE RECORDS SUMMARY | 2025-04-04 12:32 | XMS_ITS | Patient Health Record ---
Author Organization [facility] Address [address] [place] [address] Care Team Providers Care Call Center Analyst Name Role Phone Nikole Simpson Unavailable [phone] Reason For Referral No Information Medications Medication [...] Status W/U Status Risk Notes Problem Sarcoidosis (05172991) Sarcoidosis (135) Active confirmed Major Problem Benign essential hypertension (7348619) Essential hypertension, benign (401.1) Active confirmed Major Problem Urinary tract infectious disease (disorder) (27458812) Urinary tract infection, site not specified (599.0) Active confirmed Diag Problem Menopausal symptom (63783352) Symptomatic menopausal or female climacteric states (627.2) Active confirmed Major Problem Osteoporosis (95739867) Unspecified osteoporosis (733.00) Active confirmed Diag Problem Gynecological examination normal (844390980480959) Routine gynecological examination (V72.31) Active confirmed Major Problem Screening for malignant neoplasm of colon (824048707) Special screening for malignant neoplasms, colon (V76.51) Active confirmed Major Plan Of Treatment No Information Insurance Providers Payer Name Payer Address Payer Phone Subscriber Number Group Number Insured Name Patient Relationship to Insured Coverage Start Date Coverage End Date MEDICARE [address] [facility] [place] [id number] LEEANNA MCNULTY Self - patient is the insured [facility] [id number] [place] [id number] LEEANNA MCNULTY Self - patient is the insured
--- OUTSIDE RECORDS SUMMARY | 2025-04-04 12:32 | XMS_ITS | Patient Health Record ---
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 Operator Name Role Phone LYNNETTE REID Primary Care Provider Tin Santana Jr Unavailable Allergies No Known Allergies Reason For Referral No Information Medications Medication SIG (Take, Route, Frequency, Duration) Notes Start Date End Date Status Nadolol 40 MG 1 tablet Orally Once a day; Duration: 30 day(s) Active amLODIPine Besylate 10 MG 1 tablet Orally Once a day Active Pantoprazole Sodium 40 MG TAKE 1 TABLET BY MOUTH EVERY DAY FOR 30 DAYS; Duration: 90 Active Immunizations Vaccine Route Administration Date [...] Problem Status W/U Status Risk Notes Problem Colon cancer screening (673389982) Colon cancer screening (Z12.11) Active confirmed Problem Gastroesophageal reflux disease (066661172) Gastroesophageal reflux disease (K21.9) Active confirmed Problem Irritable bowel syndrome characterized by constipation (976448981) Irritable bowel syndrome with constipation (K58.1) Active confirmed Problem Gastric intestinal metaplasia (90433157) Gastric intestinal metaplasia (K31.A0) Active confirmed Vital Signs Heart Rate 84 /min 01/13/2025 Temperature 97.5 degrees Fahrenheit 01/13/2025 Blood pressure diastolic 01 mm Hg 01/13/2025 Height 62 in 01/13/2025 Blood pressure systolic 001 mm Hg 01/13/2025 Weight 182.6 lbs 01/13/2025 BMI 33.39 kg/m2 01/13/2025 Encounters Encounter Location Date Provider Diagnosis [facility] [address] [place] [address] 01/13/2025 Tin Corbin Jr Gastroesophageal reflux disease K21.9 ; Gastric intestinal metaplasia K31.A0 and Irritable bowel syndrome with constipation K58.1 Assessments Encounter Date Diagnosis (ICD Code) Assessment Notes Treatment Notes Treatment Clinical Notes Section Notes 01/13/2025 Gastroesophageal reflux disease (ICD-10 - K21.9) Leeanna is doing well. Her symptoms of reflux under good control currently. She will continue her present regimen. We discussed diet, lifestyle modifications , and weight management regarding the treatment of [...] her present regimen. We discussed diet, lifestyle modifications , and weight management regarding the treatment of [...] her present regimen. We discussed diet, lifestyle modifications , and weight management regarding the treatment of [...] ENDOSCOPY 12/28/2022 Next Appt Details Provider Name:Tin smallwoodraymon Miller, 01/14/2026 09:20:00 AM, [address], [address], [place], [address], Insurance Providers Payer Name Payer Address Payer Phone Subscriber Number Group Number Insured Name Patient Relationship to Insured Coverage Start Date Coverage End Date MEDICARE OF [place] [address] [place] [phone] [id number] LEEANNA MCNULTY Self - patient is the insured [facility] [address] [place], [place] [id number] LEEANNA MCNULTY Self - patient is the insured Medical (General) History Medical History History ICD Code EGD 02/18, gastric intestinal metaplasia along the lesser curvature of the antrum but not widespread. peptic ulcer disease hypertension bakers cyst Colonoscopy 06/20, negative for polyps, e xam was somewhat limited by prep. Surgical History Surgery Date(Month/Year) cholecystectomy
== END 2025-04-04 11:26 | disposition home or self-care (01) ==
LOC: HO.HMCHD 10:36
PROVIDERS: PCP Student in an Organized Health Care Education/Training Program; Visit Provider Student in an Organized Health Care Education/Training Program
DX: G47.09 Other insomnia (principal); F41.1 Generalized anxiety disorder; I10 Essential (primary) hypertension; E78.5 Hyperlipidemia, unspecified; K59.00 Constipation, unspecified; R60.9 Edema, unspecified; M17.12 Unilateral primary osteoarthritis, left knee

== ENCOUNTER → 2025-04-04 10:36 | Outpatient (BNVA) | payer MEDICARE, OTHER, SELFPAY | PROVIDERS: PCP Student in an Organized Health Care Education/Training Program; Visit Provider Student in an Organized Health Care Education/Training Program | DX: G47.09 Other insomnia (principal); F41.1 Generalized anxiety disorder; I10 Essential (primary) hypertension; E78.5 Hyperlipidemia, unspecified; K59.00 Constipation, unspecified; R60.9 Edema, unspecified; M17.12 Unilateral primary osteoarthritis, left knee; Z79.899 Other long term (current) drug therapy; Z13.30 Encounter for screening examination for mental health and behavioral disorders, unspecified; Z13.39 Encounter for screening examination for other mental health and behavioral disorders | CPT/HCPCS: 96127; 99212 ==